=== PATIENT | male | born 1960 | race Asian ===

== ENCOUNTER 2016-12-07 19:08 | Inpatient (IN) | payer MEDICAID ==
[~2016-12-07] VITALS: Ht 170.2 cm; Wt 69.6 kg
[2016-12-07 20:44] VITALS: BP 121/65; RESP 22
[2016-12-07] MEDS: DICLOFENAC (EC) 75 MG TAB PO SCH (22:00)
[2016-12-07] MEDS ORDERED: TAMS0.4C2 PO (22:02)
[2016-12-07] MEDS ORDERED: SUCR1TAB56 PO (22:02)
[2016-12-07] MEDS ORDERED: DICL75TA2 PO (22:02)
[2016-12-07] MEDS ORDERED: GLYB5TAB3 PO (22:02)
[2016-12-08] MEDS ORDERED: GLUCAGON 1 MG INJ IM PRN
[2016-12-08] MEDS ORDERED: DEXTROSE 50% 50 ML SYRINGE IV PRN ×2
[2016-12-08] MEDS ORDERED: GLUCOSE GEL 15 GRAM TUBE BUCCAL PRN
[2016-12-08] MEDS ORDERED: GLUCOSE GEL 15 GRAM TUBE PO PRN ×2
[2016-12-08] MEDS: NICOTINE (21 MG/24 HR) PATCH TRANSDERM SCH ×3 (01:44→21:45)
[2016-12-08] MEDS: ACCU-CHEK XX SCH (01:49)
[2016-12-08] MEDS ORDERED: ACCU-CHEK XX SCH (02:00)
[2016-12-08 02:09] VITALS: BMI 18.2
[2016-12-08 03:11] VITALS: BP 164/86; RESP 19
[2016-12-08] MEDS ORDERED: INSULIN ASPART [NOVOLOG] 3 ML PEN SC SCH ×6 (07:50→17:55)
[2016-12-08 08:11] VITALS: BP 176/88; RESP 20
[2016-12-08] MEDS: DICLOFENAC (EC) 75 MG TAB PO SCH ×2 (08:39→21:49)
[2016-12-08] MEDS: SUCRALFATE 1 GM TAB PO SCH (08:39)
[2016-12-08] MEDS: hydrALAzine 20 MG INJ IV PRN (09:25)
[2016-12-08] MEDS ORDERED: HYDROCODONE/APAP (5/325) TAB PO PRN (09:30)
[2016-12-08] MEDS ORDERED: AMLODIPINE 5 MG TAB PO SCH (09:30)
[2016-12-08] MEDS ORDERED: morphine 2 MG INJ IV PRN (09:30)
[2016-12-08 10:37] VITALS: BP 127/65; PULSE 73
--- NOTE | 2016-12-08 12:00 | HP ---
Date/Time of Note Date/Time of Note DATE: 12/08/16 TIME: 11:51 Assessment/Plan VTE Prophylaxis VTE Prophylaxis Intervention: SCD's Lines/Catheters IV Catheter Type (from Nrsg): Saline Lock Assessment/Plan Chief Complaint/Hosp Course impression LBP with LE radic/weakness (right > left) . MRI Lspine for OSH showed L4-5 disc herniation with significant neuroforaminal narrowing Mild neck pain with balance difficulty Plan obtain mri cspine w/o contras to further workup neck pain, ataxia, and bilat UE numbness/tingling candidate for posterior TLIF L4-5 with ISF placement on Saturday if OR timie is available. medical clearance and management per Medical team. Problems: HPI/ROS Admit Date/Time Admit Date/Time Dec 07, 2016 at 20:20 Hx of Present Illness 56 y/o male initially admitted to [facility] for dehydration and low back pain with LE radic (right > left) , and worsening balance prior to his admission. CT/MRI Lspine revealed L4-5 disc herniation with with significant Neuroforaminal narrowing. pmh/psx: per hpi/chart meds: see med recon ros: per hpi/chart PMH/Family/Social Social History Smoking Status: Current every day smoker Exam/Review of Systems Vital Signs Vitals Vital Signs Date Time Temp Pulse Resp B/P Pulse Ox O2 Delivery O2 Flow Rate FiO2 12/08/16 10:37 73 127/65 12/08/16 08:11 98.3 20 100 Intake and Output 12/07/16 12/07/16 12/08/16 15:00 23:00 07:00 Intake Total 500 ml Balance 500 ml Exam Constitutional: alert, oriented Neurological: other (MS: [id number] CN: III-XII M: FC x 4 5/5 strength bilat UE , 5-/5 bilat LE with patchy distribution. ) Medications Medications Current Medications Tamsulosin HCl (Flomax) 0.4 mg HS PO ; Start 12/08/16 at 21:00 Sucralfate (Carafate) 1 gm DAILY PO Last administered on 12/08/16 08:39; Admin Dose 1 GM; Start 12/08/16 at 09:00 Diclofenac Sodium (Voltaren) 75 mg BID PO Last administered on 8/12/17at 08:39 ; Admin Dose 75 MG; Start 12/07/16 at 22:00 Diagnostic Test (Pha) (Accu-Chek) 1 ea 02 XX ; Start 12/08/16 at 02:00 Nicotine (Nicoderm 21 Mg/ 24hr) 1 patch DAILY TRANSDERM Last administered on 01:44; Admin Dose 1 PATCH; Start 12/08/16 at 00:00 Miscellaneous Information 1 ea NOTE XX ; Start 12/08/16 at 00:00 Glucose (Glutose) 15 gm Q15M PRN PO DECREASED GLUCOSE; Start 12/08/16 at 00:00 Glucose (Glutose) 22.5 gm Q15M PRN PO DECREASED GLUCOSE; Start 12/08/16 at 00: 00 Dextrose (D50w Syringe) 25 ml Q15M PRN IV DECREASED GLUCOSE; Start 12/08/16 at 00:00 Dextrose (D50w Syringe) 50 ml Q15M PRN IV DECREASED GLUCOSE; Start 12/08/16 at 00:00 Glucagon (Glucagen) 1 mg Q15M PRN IM DECREASED GLUCOSE; Start 12/08/16 at 00:00 Glucose (Glutose) 15 gm Q15M PRN BUCCAL DECREASED GLUCOSE; Start 12/08/16 at 00 :00 Acetaminophen (Tylenol Tab) 650 mg Q4H PRN PO PAIN AND OR ELEVATED TEMP; Start 12/08/16 at 09:30 Acetaminophen/ Hydrocodone Bitart ([place] (5/325)) 1 tab Q4H PRN PO PAIN; Start 12/08/16 at 09:30 Morphine Sulfate (morphine) 2 mg Q3H PRN IV BREAKTHROUGH PAIN; Start 12/08/16 at 09:30 Hydralazine HCl (Apresoline) 10 mg Q4H PRN IV ELEVATED BLOOD PRESSURE Last administered on 12/08/16 09:25; Admin Dose 10 MG; Start 12/08/16 at 09:30 Amlodipine Besylate (Norvasc) 5 mg DAILY PO Last administered on 12/08/16 09: 25; Admin Dose 5 MG; Start 12/08/16 at 09:30 ZHANE LANCASTER NP Dec 08, 2016 12:00
[2016-12-08] MEDS: INSULIN ASPART [NOVOLOG] 3 ML PEN SC SCH ×5 (12:42→21:40)
[2016-12-08 15:47] VITALS: BP 132/71; RESP 20
--- NOTE | 2016-12-08 17:14 | RADRPT ---
Echocardiogram Report Patient Name: AGUSTINA GAUTAM Gender: Male Date: 1960 Study Date: 08-Dec-2016 System Configuration Specialist: Bautista Tam [facility] Location: [id number] Ref. Physician: BOLIVAR SWEENEY Quality: Adequate Procedures: Transthoracic echocardiogram with complete 2D, M-Mode, and doppler examination. Indications: Pre-op. 2D/M Mode Doppler Measurement Value Normal Ranges Measurement Value Normal Ranges LVIDd 2D 4.3 3.5 - 5.6 cm AV Peak Gary 1.3 m/sec LVIDs 2D 3.0 2.1 - 4.1 cm AV Peak PG 7.0 mmHg FS 2D 31.9 % LVOT Peak Gary 1.1 m/sec LVPWd 2D 1.3 0.6 - 1.1 cm LVOT Peak PG 5.0 mmHg IVSd 2D 1.5 0.6 - 1.1 cm MV E Peak Gary 1.0 m/sec IVS/LVPW 2D 1.1 MV A Peak Gary 0.7 m/sec AoR Diam 2D 3.1 2.0 - 3.7 cm MV E/A 1.4 LA/Ao 2D 1 0 - 1 MV Decel Time 208 msec EDV 2D 81.2 cm3 MV E/A 1.4 ESV 2D 25.7 cm3 TR Peak Gary 2.5 m/sec LA Dimen 2D 3.8 2.3 - 4.0 cm TR Peak PG 25.0 mmHg RVSP 33.0 mmHg Findings Left Ventricle: Hyperdynamic left ventricular systolic function. Normal left ventricular cavity size. Sigmoid septum. Ejection fraction is visually estimated at 70 %. Abnormal Diastolic Function. Right Ventricle: Normal right ventricular size. Normal right ventricular systolic function. Left Atrium: The left atrium is normal in size. Right Atrium: The right atrium is normal in size. Mitral Valve: Mild mitral leaflet calcification. Mild mitral annular calcification. Trace mitral regurgitation. Aortic Valve: Normal appearance of the aortic valve. No significant aortic stenosis or insufficiency. Tricuspid Valve: Normal appearance of the tricuspid valve. Estimated peak PA systolic pressure 33 mmHg. There is trace tricuspid regurgitation. Pulmonic Valve: Pulmonic valve not well visualized. There is trace pulmonic regurgitation. Pericardium: Normal pericardium with no significant pericardial effusion. Aorta: Normal aortic root. IVC: Dilated IVC with respiratory collapse consistent with elevated right atrial pressure. Conclusions 1.Hyperdynamic left ventricular systolic function. Normal left ventricular cavity size. Sigmoid septum. Ejection fraction is visually estimated at 70 %. Abnormal Diastolic Function. 2.Normal right ventricular size. Normal right ventricular systolic function. 3.Mild mitral leaflet calcification. Mild mitral annular calcification. Trace mitral regurgitation. 4.Normal appearance of the aortic valve. No significant aortic stenosis or insufficiency. 5.Normal appearance of the tricuspid valve. Estimated peak PA systolic pressure 33 mmHg. There is trace tricuspid regurgitation. 6.Normal pericardium with no significant pericardial effusion. Electronically Signed By: Naren Sanchez 08-Dec-2016 17:13:31 -0700 Patient Name: AGUSTINA GAUTAM Study Date: 08-Dec-[id number]
[2016-12-08 21:19] VITALS: BP_SYST 128; BP_SYST 151; BP_DIAS 72; BP_DIAS 74; RESP 18
[2016-12-08] MEDS: INSULIN GLARGINE [LANtus] 3 ML PEN SC SCH (21:42)
[2016-12-08] MEDS: TAMSULOSIN (SR) 0.4 MG CAP PO SCH (21:45)
[2016-12-08] MEDS: ACETAMINOPHEN 325 MG TAB PO PRN (22:39)
[2016-12-09] MEDS ORDERED: ACCU-CHEK XX SCH ×5 (02:00)
[2016-12-09] MEDS: ACCU-CHEK XX SCH (02:05)
--- NOTE | 2016-12-09 02:06 | HP ---
DATE OF ADMISSION: 12/07/2016 CHIEF COMPLAINT: Bee sting. HISTORY OF PRESENT ILLNESS: The patient is a 56-year-old man with a history of diabetes, hypertension, and peripheral neuropathy. The patient also has low back pain radiating to lower extremity with weakness, right more than left. The patient was originally admitted at [facility]. MRI of the LS spine revealed L4-L5 disk herniation with significant neural foraminal narrowing. The patient was seen by Dr. Castaneda and subsequently was transferred to [facility] for surgical procedure. Patient denied any chest pain. Denied any shortness of breath. No history of fever or chills. No history of abdominal pain. No history of headache, dizziness syncope. Patient complained of mild neck discomfort and also difficulty in walking, which could either be due to neuropathy but will need to rule out C-spine causes. The patient will undergo MRI of the C- spine. The patient denied any leg edema. No history of urinary or bowel retention or incontinence. The rest of the system unremarkable. PAST SURGICAL HISTORY: None. ALLERGIES: NONE. SOCIAL HISTORY: The patient is a smoker. Socially drinks alcohol. PHYSICAL EXAMINATION: GENERAL APPEARANCE: . Patient is conscious, awake, alert. VITAL SIGNS: Upon admission, temperature 98.6, pulse 71, respirations 22, blood pressure 121/65. Subsequently blood pressure went up to 176/88, and was given dose of Norvasc, as well as IV hydralazine. The patient reported that he got blurry vision after taking Norvasc, therefore, the patient will be switched to Zestril. HEENT: Atraumatic, normocephalic. Pupils react to light. normal. Oropharynx clear. NECK: Supple. No thyromegaly. LUNGS: Fairly clear. CVS: S1, S2 normal. Regular rate and rhythm. No murmurs, gallops, rubs. ABDOMEN: Soft, nontender. Bowel sounds present. No organomegaly. EXTREMITIES: No leg edema. No clubbing, cyanosis. Pedal pulses palpable. SKIN: No acute rashes. NEUROLOGIC: The patient is awake, alert, fairly oriented, with minimal weakness in lower extremities. MEDICATIONS: List reviewed. LABS: Pending. IMPRESSION: 1. L4-5 disk herniation. 2. Diabetes mellitus. 3. Hypertension. 4. Rule out C-spine disease. PLAN: Patient admitted to a medical floor. Patient will be given 1800-calorie ADA. The patient will be started on prednisone as well as . The patient will also be started on Restoril. We will obtain MRI of the C-spine. We will also obtain hemoglobin A1c and lipid panel. The patient was seen by Dr. Castaneda and also was seen by Dr. Huang at [facility]. Further recommendations will depend on hospital course. Dictated By: Krzysztof Rubio MD /lenny/daly /Document#: [id number]
[2016-12-09 03:22] VITALS: BP 147/76; RESP 18
--- NOTE | 2016-12-09 05:39 | CONS ---
DATE OF ADMISSION: 12/07/2016 DATE OF CONSULTATION: 12/08/2016 HISTORY OF PRESENT ILLNESS: The patient is a 56-year-old male who was transferred from [facility] with low backache, gait difficulty, paresthesia. PAST MEDICAL HISTORY: Diabetes, hypertension, gait difficulty in which he has weakness of the bilateral lower extremities, associated with decreased balance. 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 I admitted him to [facility] where I found the patient has diabetic ketoacidosis with blood sugar of 506 upon admission. Followed by IV fluids and dehydration, insulin, as well as oral tablets. The patient also has hypertension, benign prostatic hypertrophy, and paresthesias. MEDICATION: 1. Ambien 5 mg once at night. 2. Ultram 50 mg q.4h as needed. 3. Glucotrol 5 mg twice a day. 4. Metformin 500 mg twice a day. 5. Maalox 30 mg as needed every six hours. 6. Neurontin 300 mg q.12h. 7. Protonix 40 mg once a day. 8. Tylenol 325 mg once a day. 9. Zofran 4 mg once a day. PHYSICAL EXAMINATION: NEUROLOGIC: Sensation: Hat Marker for glove and stocking area, temperature and coordination: Could not assess. HEART: Regular rate and rhythm. LUNGS: Equal breath sounds. ABDOMEN: Soft, flat, no tenderness. ASSESSMENT AND PLAN:: 1. The patient is a 56-year-old male with gait difficulty. 2. Lumbosacral radiculopathy with disc prolapse of 6 to 7 mm. The patient was transferred for more evaluation and treatment. 3. Paresthesia. Gave the patient Neurontin 300 mg three times a day. 4. Status post diabetic ketoacidosis. Follow up the patient with sliding scale insulin as well as Accu-Chek. 5. Hypertension in which the patient was started on lisinopril. 6. Acute dizzy spells with possibility of underyling cervical radiculopathy, in which MRI ordered by Dr. Castaneda. 7. Again, thank you Dr. Castaneda for asking me to see the patient with you. Dictated By: Kashif Huang MD /lenny/christine /Document#: [id number]
[2016-12-09 05:45] LABS: PARTIAL THROMBOPLASTIN TIME 30.9 Sec (25.0-35.0); PROTIME 13.2 Sec (12.2-14.2)
[2016-12-09 05:52] LABS: ALBUMIN 3.5 g/dl (3.3-4.9); ALBUMIN/GLOBULIN RATIO 1.45; BILIRUBIN,INDIRECT 0.5 mg/dl (0-1.1); BILIRUBIN,TOTAL 0.5 mg/dl (0.2-1.3); CREATININE 0.83 mg/dl (0.61-1.24); TOTAL PROTEIN 5.9 g/dl (6.1-8.1)
[2016-12-09] MEDS: ACETAMINOPHEN 325 MG TAB PO PRN (07:37)
[2016-12-09] MEDS: INSULIN ASPART [NOVOLOG] 3 ML PEN SC SCH ×7 (07:50→21:00)
[2016-12-09 08:10] VITALS: BP 164/78; RESP 20
[2016-12-09] MEDS: DICLOFENAC (EC) 75 MG TAB PO SCH ×2 (08:29→20:21)
[2016-12-09] MEDS: SUCRALFATE 1 GM TAB PO SCH (08:29)
[2016-12-09] MEDS: LISINOPRIL 10 MG TAB PO SCH (08:29)
--- NOTE | 2016-12-09 10:21 | PN ---
Date/Time of Note Date/Time of Note DATE: 12/09/16 TIME: 10:19 Assessment/Plan VTE Prophylaxis VTE Prophylaxis Intervention: SCD's Lines/Catheters IV Catheter Type (from Nrsg): Saline Lock Assessment/Plan Chief Complaint/Hosp Course impression LBP with LE radic/weakness (right > left) . MRI Lspine for OSH showed L4-5 disc herniation with significant neuroforaminal narrowing Mild neck pain with balance difficulty Plan obtain mri cspine w/o contrast to further workup neck pain, ataxia, and bilat UE numbness/tingling candidate for posterior TLIF L4-5 with ISF placement on Saturday if OR timie is available. Neurology following . MRI brain / Cervical spine - pending medical clearance and management per Medical team. Problems: Subjective 24 Hr Interval Summary Free Text/Dictation S: NAD Awaiting MRI brain /cervical spine which was ordered yesterday Exam/Review of Systems Vital Signs Vitals Vital Signs Date Time Temp Pulse Resp B/P Pulse Ox O2 Delivery O2 Flow Rate FiO2 12/09/16 08:10 98.0 78 20 164/78 99 Intake and Output 12/08/16 12/08/16 12/09/16 14:59 22:59 06:59 Intake Total 1900 ml 800 ml Output Total 900 ml Balance 1900 ml -100 ml Exam Neurological: other (MS: [id number] CN: PERRL M: FC x 4 , no new weakness noted. ) Results Result Diagram: 12/09/16 0450 Results 24 hrs Laboratory Tests Test 12/08/16 12:22 12/08/16 17:18 12/08/16 21:37 12/09/16 01:40 Bedside Glucose 199 140 182 209 Test 12/09/16 04:30 12/09/16 04:50 12/09/16 05:11 12/09/16 08:29 Prothrombin Time 13.2 Prothrombin Time Ratio 1.0 INR International Normalized Ratio 1.00 Activated Partial Thromboplast Time 30.9 Sodium Level 135 Potassium Level 4.0 Chloride Level 102 Carbon Dioxide Level 25 Anion Gap 12 Blood Urea Nitrogen 21 H Creatinine 0.83 Glucose Level 145 Calcium Level 9.0 Total Bilirubin 0.5 Direct Bilirubin 0.00 Indirect Bilirubin 0.5 Aspartate Amino Transf (AST/SGOT) 24 Alanine Aminotransferase (ALT/SGPT) 33 Alkaline Phosphatase 67 Total Protein 5.9 L Albumin 3.5 Globulin 2.40 Albumin/Globulin Ratio 1.45 Triglycerides Level 88 Cholesterol Level 147 LDL Cholesterol, Calculated 93 HDL Cholesterol 36 Cholesterol/HDL Ratio 4.0 Hemoglobin A1c 13.3 H Bedside Glucose 130 Medications Medications Current Medications Tamsulosin HCl (Flomax) 0.4 mg HS PO Last administered on 12/08/16 21:45; Admin Dose 0.4 MG; Start 12/08/16 at 21:00 Sucralfate (Carafate) 1 gm DAILY PO Last administered on 12/09/16 08:29; Admin Dose 1 GM; Start 12/08/16 at 09:00 Diclofenac Sodium (Voltaren) 75 mg BID PO Last administered on 12/09/16 08:29 ; Admin Dose 75 MG; Start 12/07/16 at 22:00 Diagnostic Test (Pha) (Accu-Chek) 1 ea 02 XX Last administered on 12/09/16 02: 05; Admin Dose 1 EA; Start 12/08/16 at 02:00 Nicotine (Nicoderm 21 Mg/ 24hr) 1 patch DAILY TRANSDERM Last administered on 21:45; Admin Dose 1 PATCH; Start 12/08/16 at 00:00 Miscellaneous Information 1 ea NOTE XX ; Start 12/08/16 at 00:00 Glucose (Glutose) 15 gm Q15M PRN PO DECREASED GLUCOSE; Start 12/08/16 at 00:00 Glucose (Glutose) 22.5 gm Q15M PRN PO DECREASED GLUCOSE; Start 12/08/16 at 00: 00 Dextrose (D50w Syringe) 25 ml Q15M PRN IV DECREASED GLUCOSE; Start 12/08/16 at 00:00 Dextrose (D50w Syringe) 50 ml Q15M PRN IV DECREASED GLUCOSE; Start 12/08/16 at 00:00 Glucagon (Glucagen) 1 mg Q15M PRN IM DECREASED GLUCOSE; Start 12/08/16 at 00:00 Glucose (Glutose) 15 gm Q15M PRN BUCCAL DECREASED GLUCOSE; Start 12/08/16 at 00 :00 Acetaminophen (Tylenol Tab) 650 mg Q4H PRN PO PAIN AND OR ELEVATED TEMP Last administered on 12/09/16 07:37; Admin Dose 650 MG; Start 12/08/16 at 09:30 Acetaminophen/ Hydrocodone Bitart ([place] (5/325)) 1 tab Q4H PRN PO PAIN; Start 12/08/16 at 09:30 Morphine Sulfate (morphine) 2 mg Q3H PRN IV BREAKTHROUGH PAIN; Start 12/08/16 at 09:30 Hydralazine HCl (Apresoline) 10 mg Q4H PRN IV ELEVATED BLOOD PRESSURE Last administered on 12/08/16 09:25; Admin Dose 10 MG; Start 12/08/16 at 09:30 Insulin Glargine (Lantus) 10 unit DAILY@20 SC Last administered on 12/08/16 21 :42; Admin Dose 10 UNIT; Start 12/08/16 at 20:00 Lisinopril (Zestril) 10 mg DAILY PO Last administered on 12/09/16 08:29; Admin Dose 10 MG; Start 12/09/16 at 09:00 ZHANE LANCASTER NP Dec 09, 2016 10:21
[2016-12-09] MEDS: hydrALAzine 20 MG INJ IV PRN (14:10)
[2016-12-09 14:55] VITALS: BP 165/77; RESP 22
--- NOTE | 2016-12-09 15:48 | RADRPT ---
PROCEDURE: MR Cervical Spine noncontrast. CLINICAL INDICATION: Neuropathy. Ataxia. TECHNIQUE: Multiplanar multisequence noncontrast MRI of the cervical spine was performed. COMPARISON: There are no similar studies submitted for comparison. FINDINGS: There is a normal cervical lordosis. The vertebral body heights are maintained. There is normal alignment. There is no destructive osseous lesion. There is no abnormal bone marrow edema. There is disk desiccation from C2-C3 to C6-C7. The spinal cord is normal in caliber. The spinal cord is normal in signal. C2-C3 : There is a 1 mm circumferential disk osteophyte complex without spinal canal or bilateral fo raminal stenosis. C3-C4 : There is a 1 mm broad-based disk osteophyte complex without spinal canal stenosis. There is moderate bilateral facet arthropathy and bilateral uncovertebral hypertrophy causing moderate to se eddi left with mild to moderate right foraminal stenosis. This affects the exiting left C4 nerve ro ot. C4-C5 : There is a 1 mm circumferential disk osteophyte complex with 1 mm central disk/osteophyte pr otrusion without spinal canal stenosis. There is moderate bilateral facet arthropathy and bilateral uncovertebral hypertrophy without bilateral foraminal stenosis. C5-C6 : There is mild disk space narrowing. There is a 2 mm circumferential disk osteophyte complex without spinal canal stenosis. There is severe left and mild right facet arthropathy and bilateral uncovertebral hypertrophy causing severe left without right foraminal stenosis. This affects the ex iting left C6 nerve root. C6-C7 : There is a 1 mm broad-based disk osteophyte complex without spinal canal stenosis. There is moderate bilateral facet arthropathy and bilateral uncovertebral hypertrophy with mild right withou t left foraminal stenosis. There are bilateral nerve root sleeve cysts. C7-T1 : There is a 1 mm broad-based disk bulge without spinal canal stenosis. There is mild bilater al facet arthropathy without bilateral foraminal stenosis. There are bilateral nerve root sleeve cy sts. The paravertebral musculature are within normal limits. IMPRESSION: 1. Multilevel degenerative changes most pronounced at C5-C6 where there is a circumferential disk o steophyte complex with severe left foraminal stenosis. This affects the exiting left C6 nerve root. 2. No abnormal spinal cord signal. 3. No abnormal bone marrow edema. Further findings as detailed above. RPTAT: HVF .Bar Francis MD, MD Date Time Electronically viewed and signed by .Bar Francis MD, MD on 12/09/2016 15:47 .F/
--- NOTE | 2016-12-09 15:49 | RADRPT ---
PROCEDURE: MRI Brain without contrast. CLINICAL INDICATION: Ataxia, visual disturbance. TECHNIQUE: An MRI of the brain was performed utilizing the following sequences: Sagittal and axial T1 weighted, axial T2 weighted, axial diffusion weighted with ADC mapping, coronal GRE, and axial F LAIR. COMPARISON: None. FINDINGS: No diffusion weighted abnormalities are seen to suggest the presence of acute ischemia or recent inf arct. No hypointense signal abnormalities are seen on the GRE images to suggest the presence of blo od degradation products. There is no evidence of intracranial hemorrhage, mass effect, or midline s hift. No extra-axial fluid collections are seen. The ventricles and sulci are mildly enlarged indica tive of volume loss. There are minimal foci of T2 FLAIR hyperintensity in the white matter as well as ceci, which are non specific in etiology but likely reflect chronic small vessel ischemic changes. In addition there i s a nonspecific T2 and FLAIR hyperintensity in the central ceci which is disproportionate to cerebra l white matter. Differential consideration includes osmotic demyelination, ischemia, or less likely neoplasm. No abnormal intracranial vascular flow void is noted. The visualized paranasal sinuses demonstrate m ild scattered mucosal thickening. IMPRESSION: 1. No acute intracranial hemorrhage or infarction. 2. Nonspecific T2 and FLAIR hyperintensity in the central ceci which is disproportionate to cerebra l white matter. Differential consideration includes osmotic demyelination, ischemia, or less likely neoplasm. If clinical concern persists MRI with contrast can be obtained. 3. Minimal chronic small vessel ischemic changes. 4. Mild generalized cerebral volume loss. A call report was made and above findings were discussed and acknowledged by patient's nurse SENA Vyas on 12/09/2016 2:[address] Castaneda and Dr Huang on 12/09/2016 3:42 PM . RPTAT: QQ .Taras Veronica MD, MD Date Time Electronically viewed and signed by .Taras Veronica MD, MD on 12/09/2016 15:49 .N/
[2016-12-09 16:39] VITALS: BP 135/63; PULSE 77
[2016-12-09 19:50] VITALS: BP 134/64; RESP 18
[2016-12-09] MEDS: INSULIN GLARGINE [LANtus] 3 ML PEN SC SCH (20:21)
[2016-12-09] MEDS: TAMSULOSIN (SR) 0.4 MG CAP PO SCH (20:22)
[2016-12-09] MEDS: NICOTINE (21 MG/24 HR) PATCH TRANSDERM SCH (20:23)
[2016-12-10 01:48] VITALS: BP 163/79; RESP 18
[2016-12-10] MEDS: ACCU-CHEK XX SCH (02:00)
--- NOTE | 2016-12-10 04:32 | PN ---
DATE: 12/09/2016 SUBJECTIVE DATA: The patient is a 56-year-old male with a past medical history of hypertension, diabetes, low backache, gait difficulty for which the patient was admitted for more evaluation and treatment. MEDICATIONS: The patient has multiple medications in the form of metformin, Glucotrol, Ambien, Ultram, Tylenol, Zofran. OBJECTIVE DATA: The patient is awake, alert and oriented to time, place and person. Normal . Heart has regular rate and rhythm. Lungs have equal breath sounds. Abdomen soft, flat, nontender, nondistended. Hip: Decreased right hip flexion. low backaches. , temperature, coordination. [id number] testing intact. ASSESSMENT AND PLAN: 1. The patient is a 56-year-old with lumbosacral radiculopathy at L4-L5 with neural foramina narrowing for which the patient required neurosurgery evaluation and possible surgery. Follow up the patient with surgical interference with Dr. Fernanda Castaneda who ordered for him a MRI and discussed surgery. 2. Underlying diabetes. The patient is followed by sliding scale insulin treatment, Glucotrol and metformin. 3. Underlying gastritis. The patient is on Pepcid, Protonix 40 mg as needed. 4. History of hypertension. The patient is on hydralazine 10 mg q.4h as needed. Dictated By: Kashif Huang MD /lenny/shyam /Document#: [id number]
[2016-12-10 05:47] LABS: BASOPHILS % 0.4 % (0.0-2.0); EOSINOPHILS # 0.1 10^3/ul (0.0-0.5); EOSINOPHILS % 2.4 % (0.0-7.0); HEMATOCRIT 36.4 % (42.0-52.0); HEMOGLOBIN 11.9 g/dl (14.0-18.0); LYMPHOCYTES # 2.3 10^3/ul (0.8-2.9); LYMPHOCYTES % 49.5 % (15.0-51.0); MEAN CORPUSCULAR HEMOGLOBIN 29.2 pg (29.0-33.0); MEAN CORPUSCULAR HGB CONC 32.7 g/dl (32.0-37.0); MEAN CORPUSCULAR VOLUME 89.2 fl (82.0-101.0); MEAN PLATELET VOLUME 11.3 fl (7.4-10.4); MONOCYTE # 0.5 10^3/ul (0.3-0.9); MONOCYTES % 10.9 % (0.0-11.0); NEUTROPHIL # 1.7 10^3/ul (1.6-7.5); NEUTROPHILS % 36.6 % (39.0-77.0); PLATELET COUNT 168 10^3/UL (140-415); RED BLOOD COUNT 4.08 10^6/ul (4.70-6.10); RED CELL DISTRIBUTION WIDTH 13.1 % (11.5-14.5); WHITE BLOOD COUNT 4.7 10^3/ul (4.8-10.8)
[2016-12-10 05:59] LABS: CALCIUM 9.2 mg/dl (8.4-10.2); CREATININE 0.97 mg/dl (0.61-1.24); POTASSIUM 4.2 mmol/L (3.5-5.1)
[2016-12-10 08:18] VITALS: BP 119/63; RESP 20
[2016-12-10] MEDS: DICLOFENAC (EC) 75 MG TAB PO SCH ×2 (08:41→23:11)
[2016-12-10] MEDS: SUCRALFATE 1 GM TAB PO SCH (08:41)
[2016-12-10] MEDS: LISINOPRIL 10 MG TAB PO SCH (08:41)
[2016-12-10] MEDS: INSULIN ASPART [NOVOLOG] 3 ML PEN SC SCH ×7 (08:50→21:06)
--- NOTE | 2016-12-10 15:45 | PN ---
Date/Time of Note Date/Time of Note DATE: 12/10/16 TIME: 15:40 Assessment/Plan VTE Prophylaxis VTE Prophylaxis Intervention: SCD's Lines/Catheters IV Catheter Type (from Nrsg): Peripheral IV Assessment/Plan Assessment/Plan -L4-5 disk herniation with significant neuroforaminal narrowing with radiculopathy and weakness plan for surgical procedure by Dr. Castaneda tomorrow. Will obtain chest x-ray BMP CBC and coags. -Poorly controlled diabetes mellitus with hemoglobin A1c 13.3, continue Lantus and NovoLog, diabetic education. -Hypertension. Continue lisinopril and hydralazine. -Tobacco dependence, continue nicotine patch, tobacco cessation is strongly advised. Further recommendations based on clinical course. Plan of care discussed with Dr. Rubio. Exam/Review of Systems Vital Signs Vitals Vital Signs Date Time Temp Pulse Resp B/P Pulse Ox O2 Delivery O2 Flow Rate FiO2 12/10/16 08:18 98.4 71 20 119/63 98 Intake and Output 12/09/16 12/09/16 12/10/16 15:00 23:00 07:00 Intake Total 890 ml 850 ml Output Total 1200 ml Balance 890 ml -350 ml Exam Constitutional: alert, oriented Head: atraumatic, normocephalic Neck: supple Cardiovascular: nl pulses Gastrointestinal: soft Extremities: normal pulses Results Result Diagram: 12/10/16 0438 12/10/16 0438 Results 24 hrs Laboratory Tests Test 12/09/16 17:34 12/09/16 20:19 12/10/16 04:38 12/10/16 08:46 Bedside Glucose 269 H 137 189 White Blood Count 4.7 L Red Blood Count 4.08 L Hemoglobin 11.9 L Hematocrit 36.4 L Mean Corpuscular Volume 89.2 Mean Corpuscular Hemoglobin 29.2 Mean Corpuscular Hemoglobin Concent 32.7 Red Cell Distribution Width 13.1 Platelet Count 168 Mean Platelet Volume 11.3 H Neutrophils % 36.6 L Lymphocytes % 49.5 Monocytes % 10.9 Eosinophils % 2.4 Basophils % 0.4 Nucleated Red Blood Cells % 0.0 Neutrophils # 1.7 Lymphocytes # 2.3 Monocytes # 0.5 Eosinophils # 0.1 Basophils # 0.0 Nucleated Red Blood Cells # 0.0 Sodium Level 138 Potassium Level 4.2 Chloride Level 102 Carbon Dioxide Level 28 Anion Gap 12 Blood Urea Nitrogen 21 H Creatinine 0.97 Glucose Level 150 Calcium Level 9.2 Test 12/10/16 12:45 Bedside Glucose 159 Medications Medications Current Medications Tamsulosin HCl (Flomax) 0.4 mg HS PO Last administered on 12/09/16 20:22; Admin Dose 0.4 MG; Start 12/08/16 at 21:00 Sucralfate (Carafate) 1 gm DAILY PO Last administered on 12/10/16 08:41; Admin Dose 1 GM; Start 12/08/16 at 09:00 Diclofenac Sodium (Voltaren) 75 mg BID PO Last administered on 12/10/16 08:41 ; Admin Dose 75 MG; Start 12/07/16 at 22:00 Diagnostic Test (Pha) (Accu-Chek) 1 ea 02 XX Last administered on 12/09/16 02: 05; Admin Dose 1 EA; Start 12/08/16 at 02:00 Nicotine (Nicoderm 21 Mg/ 24hr) 1 patch DAILY TRANSDERM Last administered on 20:23; Admin Dose 1 PATCH; Start 12/08/16 at 00:00 Miscellaneous Information 1 ea NOTE XX ; Start 12/08/16 at 00:00 Glucose (Glutose) 15 gm Q15M PRN PO DECREASED GLUCOSE; Start 12/08/16 at 00:00 Glucose (Glutose) 22.5 gm Q15M PRN PO DECREASED GLUCOSE; Start 12/08/16 at 00: 00 Dextrose (D50w Syringe) 25 ml Q15M PRN IV DECREASED GLUCOSE; Start 12/08/16 at 00:00 Dextrose (D50w Syringe) 50 ml Q15M PRN IV DECREASED GLUCOSE; Start 12/08/16 at 00:00 Glucagon (Glucagen) 1 mg Q15M PRN IM DECREASED GLUCOSE; Start 12/08/16 at 00:00 Glucose (Glutose) 15 gm Q15M PRN BUCCAL DECREASED GLUCOSE; Start 12/08/16 at 00 :00 Acetaminophen (Tylenol Tab) 650 mg Q4H PRN PO PAIN AND OR ELEVATED TEMP Last administered on 12/09/16 07:37; Admin Dose 650 MG; Start 12/08/16 at 09:30 Acetaminophen/ Hydrocodone Bitart ([place] (5/325)) 1 tab Q4H PRN PO PAIN; Start 12/08/16 at 09:30 Morphine Sulfate (morphine) 2 mg Q3H PRN IV BREAKTHROUGH PAIN; Start 12/08/16 at 09:30 Hydralazine HCl (Apresoline) 10 mg Q4H PRN IV ELEVATED BLOOD PRESSURE Last administered on 12/09/16 14:10; Admin Dose 10 MG; Start 12/08/16 at 09:30 Insulin Glargine (Lantus) 10 unit DAILY@20 SC Last administered on 12/09/16 20 :21; Admin Dose 10 UNIT; Start 12/08/16 at 20:00 Lisinopril (Zestril) 10 mg DAILY PO Last administered on 12/10/16 08:41; Admin Dose 10 MG; Start 12/09/16 at 09:00 HUAN CAICEDO Dec 10, 2016 15:45
[2016-12-10] MEDS: NICOTINE (21 MG/24 HR) PATCH TRANSDERM SCH (17:10)
[2016-12-10] MEDS ORDERED: glipiZIDE 5 MG TAB PO ONE (17:30)
[2016-12-10] MEDS: metFORMIN 500 MG TAB PO SCH (18:20)
[2016-12-10 20:21] VITALS: BP 147/73; RESP 16
[2016-12-10] MEDS: INSULIN GLARGINE [LANtus] 3 ML PEN SC SCH (21:05)
[2016-12-10] MEDS: TAMSULOSIN (SR) 0.4 MG CAP PO SCH (23:11)
[2016-12-11] VITALS (23 sets, daily range): BP systolic 107–175; BP diastolic 55–96; PULSE 78–83; RESP 12–20
--- NOTE | 2016-12-11 00:13 | RADRPT ---
PROCEDURE: XR Chest. CLINICAL INDICATION: Preop TECHNIQUE: Single AP portable chest. COMPARISON: No prior Chest x-ray FINDINGS: The cardiomediastinal silhouette is within normal limits of size. Atherosclerotic calcification of t he aorta. The lungs are clear without pleural effusion or focal consolidation. No pneumothorax. The osseous structures and soft tissues are unremarkable. IMPRESSION: 1. No evidence for active cardiopulmonary disease. RPTAT:AAJJ Reyes H[place] Physician Date Time Electronically viewed and signed by Reyes Hinton Physician on 12/11/2016 00:13 ROCKY/
[2016-12-11] MEDS: ACCU-CHEK XX SCH (02:07)
[2016-12-11 05:21] LABS: BASOPHILS % 0.4 % (0.0-2.0); EOSINOPHILS # 0.1 10^3/ul (0.0-0.5); EOSINOPHILS % 2.7 % (0.0-7.0); HEMATOCRIT 32.2 % (42.0-52.0); HEMOGLOBIN 10.7 g/dl (14.0-18.0); LYMPHOCYTES # 2.6 10^3/ul (0.8-2.9); LYMPHOCYTES % 52.9 % (15.0-51.0); MEAN CORPUSCULAR HEMOGLOBIN 29.3 pg (29.0-33.0); MEAN CORPUSCULAR HGB CONC 33.2 g/dl (32.0-37.0); MEAN CORPUSCULAR VOLUME 88.2 fl (82.0-101.0); MONOCYTE # 0.5 10^3/ul (0.3-0.9); NEUTROPHILS % 32.8 % (39.0-77.0); PLATELET COUNT 148 10^3/UL (140-415); RED BLOOD COUNT 3.65 10^6/ul (4.70-6.10); WHITE BLOOD COUNT 4.8 10^3/ul (4.8-10.8)
[2016-12-11 05:44] LABS: CALCIUM 8.7 mg/dl (8.4-10.2); CREATININE 0.91 mg/dl (0.61-1.24)
[2016-12-11 05:45] LABS: INR 0.99; PROTIME 13.1 Sec (12.2-14.2)
[2016-12-11 05:50] LABS: PARTIAL THROMBOPLASTIN TIME 30.3 Sec (25.0-35.0)
[2016-12-11] MEDS ORDERED: ROCURONIUM 50 MG INJ ONE ×2 (07:00→17:50)
[2016-12-11] MEDS ORDERED: PROPOFOL 200 MG INJ ONE (07:00)
--- NOTE | 2016-12-11 08:20 | CONS ---
DATE OF ADMISSION: 12/07/2016 DATE OF CONSULTATION: 12/10/2016 HISTORY OF PRESENT ILLNESS: Patient is a 56-year-old with underlying diabetes, hypertension, low back ache, radiculopathy, decreased gait. PHYSICAL EXAMINATION: GENERAL: Patient is alert, awake, oriented. Following simple commands. HEART: Regular rate and rhythm. LUNGS: Equal breath sounds. ABDOMEN: Soft, nondistended, no tenderness. Right hip flexion limited by low back ache. LABORATORY DATA: Patient's blood sugar today between 140-190. ASSESSMENT AND PLAN: 1. We have already stopped his metformin, as well as glipizide, and follow up the patient with sliding scale insulin and AccuCheks. The patient is scheduled to have the surgery tomorrow at 5 p.m., in which he will be n.p.o. after breakfast in the morning. 2. Status post diabetes for observation with sliding scale insulin and AccuCheks. 3. Admit the patient. 4. We will start the patient on aspirin for stroke prophylaxis with abnormal MRI; however, we will hold the aspirin until he has the surgery. Dictated By: Kashif Huang MD /lenny/daly /Document#: [id number]
[2016-12-11] MEDS: SUCRALFATE 1 GM TAB PO SCH (08:31)
[2016-12-11] MEDS: metFORMIN 500 MG TAB PO SCH ×2 (08:31→17:33)
[2016-12-11] MEDS: DICLOFENAC (EC) 75 MG TAB PO SCH ×2 (08:31→21:00)
[2016-12-11] MEDS: LISINOPRIL 10 MG TAB PO SCH (08:32)
[2016-12-11] MEDS: INSULIN ASPART [NOVOLOG] 3 ML PEN SC SCH ×5 (09:11→17:25)
[2016-12-11] MEDS ORDERED: SOD CHLORIDE 0.9% 1,000 ML IV SCH (11:00)
--- NOTE | 2016-12-11 13:39 | PN ---
Date/Time of Note Date/Time of Note DATE: 12/11/16 TIME: 13:37 Assessment/Plan VTE Prophylaxis VTE Prophylaxis Intervention: SCD's Lines/Catheters [facility] [place] Urinary Cath still in place: No Assessment/Plan Chief Complaint/Hosp Course Patient is currently n.p.o. for surgery in the afternoon, no acute events. Will start IV fluids with dextrose while patient is n.p.o. change Accu-Chek to every 4 hours. Assessment/Plan -L4-5 disk herniation with significant neuroforaminal narrowing with radiculopathy and weakness, plan for surgical procedure by Dr. Castaneda. -Poorly controlled diabetes mellitus with hemoglobin A1c 13.3, continue Lantus and NovoLog, diabetic education. -Hypertension. Continue lisinopril and hydralazine. -Tobacco dependence, continue nicotine patch, tobacco cessation is strongly advised. Further recommendations based on clinical course. Plan of care discussed with Dr. Rubio. Problems: Exam/Review of Systems Vital Signs Vitals Vital Signs Date Time Temp Pulse Resp B/P Pulse Ox O2 Delivery O2 Flow Rate FiO2 12/11/16 08:21 98.0 72 18 110/55 98 Intake and Output 12/10/16 12/10/16 12/11/16 15:00 23:00 07:00 Intake Total 1240 ml 1100 ml Balance 1240 ml 1100 ml Results Result Diagram: 12/11/16 0440 12/11/16 0440 Results 24 hrs Laboratory Tests Test 12/10/16 17:41 12/10/16 20:58 12/11/16 02:01 12/11/16 04:40 Bedside Glucose 195 187 181 White Blood Count 4.8 Red Blood Count 3.65 L Hemoglobin 10.7 L Hematocrit 32.2 L Mean Corpuscular Volume 88.2 Mean Corpuscular Hemoglobin 29.3 Mean Corpuscular Hemoglobin Concent 33.2 Red Cell Distribution Width 13.0 Platelet Count 148 Mean Platelet Volume 11.0 H Neutrophils % 32.8 L Lymphocytes % 52.9 H Monocytes % 11.0 Eosinophils % 2.7 Basophils % 0.4 Nucleated Red Blood Cells % 0.0 Neutrophils # (Manual) 1.6 L Lymphocytes # 2.6 Monocytes # 0.5 Eosinophils # 0.1 Basophils # 0.0 Nucleated Red Blood Cells # 0.0 Prothrombin Time 13.1 Prothrombin Time Ratio 1.0 INR International Normalized Ratio 0.99 Activated Partial Thromboplast Time 30.3 Thrombin Time 14.0 Sodium Level 134 L Potassium Level 4.0 Chloride Level 102 Carbon Dioxide Level 25 Anion Gap 11 Blood Urea Nitrogen 23 H Creatinine 0.91 Glucose Level 215 Calcium Level 8.7 Test 12/11/16 08:46 12/11/16 12:36 Bedside Glucose 210 112 Medications Medications Current Medications Tamsulosin HCl (Flomax) 0.4 mg HS PO Last administered on 12/10/16 23:11; Admin Dose 0.4 MG; Start 12/08/16 at 21:00 Sucralfate (Carafate) 1 gm DAILY PO Last administered on 12/11/16 08:31; Admin Dose 1 GM; Start 12/08/16 at 09:00 Diclofenac Sodium (Voltaren) 75 mg BID PO Last administered on 12/11/16 08:31 ; Admin Dose 75 MG; Start 12/07/16 at 22:00 Diagnostic Test (Pha) (Accu-Chek) 1 ea 02 XX Last administered on 12/11/16 02: 07; Admin Dose 1 EA; Start 12/08/16 at 02:00 Nicotine (Nicoderm 21 Mg/ 24hr) 1 patch DAILY TRANSDERM Last administered on 17:10; Admin Dose 1 PATCH; Start 12/08/16 at 00:00 Miscellaneous Information 1 ea NOTE XX ; Start 12/08/16 at 00:00 Glucose (Glutose) 15 gm Q15M PRN PO DECREASED GLUCOSE; Start 12/08/16 at 00:00 Glucose (Glutose) 22.5 gm Q15M PRN PO DECREASED GLUCOSE; Start 12/08/16 at 00: 00 Dextrose (D50w Syringe) 25 ml Q15M PRN IV DECREASED GLUCOSE; Start 12/08/16 at 00:00 Dextrose (D50w Syringe) 50 ml Q15M PRN IV DECREASED GLUCOSE; Start 12/08/16 at 00:00 Glucagon (Glucagen) 1 mg Q15M PRN IM DECREASED GLUCOSE; Start 12/08/16 at 00:00 Glucose (Glutose) 15 gm Q15M PRN BUCCAL DECREASED GLUCOSE; Start 12/08/16 at 00 :00 Acetaminophen (Tylenol Tab) 650 mg Q4H PRN PO PAIN AND OR ELEVATED TEMP Last administered on 12/09/16 07:37; Admin Dose 650 MG; Start 12/08/16 at 09:30 Acetaminophen/ Hydrocodone Bitart ([place] (5/325)) 1 tab Q4H PRN PO PAIN; Start 12/08/16 at 09:30 Morphine Sulfate (morphine) 2 mg Q3H PRN IV BREAKTHROUGH PAIN; Start 12/08/16 at 09:30 Hydralazine HCl (Apresoline) 10 mg Q4H PRN IV ELEVATED BLOOD PRESSURE Last administered on 12/09/16 14:10; Admin Dose 10 MG; Start 12/08/16 at 09:30 Insulin Glargine (Lantus) 10 unit DAILY@20 SC Last administered on 12/10/16 21 :05; Admin Dose 10 UNIT; Start 12/08/16 at 20:00 Lisinopril 10 mg 10 mg DAILY PO Last administered on 12/11/16 08:32; Admin Dose 10 MG; Start 12/09/16 at 09:00 Sodium Chloride (NS) 1,000 ml @ 75 mls/hr [id number] IV ; Start 12/11/16 at 11:00 HUAN CAICEDO Dec 11, 2016 13:39
[2016-12-11] MEDS: DEXTROSE 5%-0.9% NACL 1,000 ML IV SCH (14:12)
[2016-12-11] MEDS: Insulin NOVOLOG SS MILD Algorithm (NPO/TPN/ENTERAL FEEDS) SC SCH ×2 (16:55→23:48)
[2016-12-11] MEDS ORDERED: INSULIN ASPART [NOVOLOG] 3 ML PEN SC SCH (17:00)
[2016-12-11] MEDS ORDERED: GELATIN SIZE 100 SPONGE ONE (17:23)
[2016-12-11] MEDS ORDERED: THROMBIN 5000 UNIT VIAL ONE (17:23)
[2016-12-11] MEDS ORDERED: BUPIVACAINE 0.5% (SDV) 30 ML INJ ONE (17:23)
[2016-12-11] MEDS ORDERED: POLYMYXIN/BACITRACIN 1L IRRIG ONE (17:24)
[2016-12-11] MEDS ORDERED: PROPOFOL 20 ML ONE (17:50)
[2016-12-11] MEDS ORDERED: CEFAZOLIN 1 GM INJ ONE (17:50)
[2016-12-11] MEDS ORDERED: DEXAMETHASONE 4 MG/ML 1 ML INJ ONE (17:50)
[2016-12-11] MEDS ORDERED: NEOSTIGMINE 3 MG/3 ML SYRINGE ONE (17:50)
[2016-12-11] MEDS ORDERED: MIDAZOLAM 1 MG/ML 2 ML INJ ONE ×2 (17:50→18:40)
[2016-12-11] MEDS ORDERED: GLYCOPYRROLATE 0.4 MG INJ ONE (17:50)
[2016-12-11] MEDS ORDERED: FENTAnyl 50 MCG/ML VIAL ONE (17:50)
[2016-12-11] MEDS ORDERED: ONDANSETRON 4 MG INJ ONE (17:50)
[2016-12-11] MEDS: DOCUSATE SODIUM 100 MG CAP PO SCH (18:00)
[2016-12-11] MEDS ORDERED: NACL 0.9% 3 ML SYG IV SCH (18:00)
[2016-12-11] MEDS: CEFAZOLIN 1 GM/50 ML (PMX) 50 ML IVPB SCH ×2 (18:00→23:58)
[2016-12-11] MEDS ORDERED: NALOXONE (0.4 MG/ML) INJ IV PRN (18:00)
[2016-12-11] MEDS ORDERED: MEPERIDINE 25 MG INJ IV PRN (20:00)
[2016-12-11] MEDS ORDERED: DIPHENHYDRAMINE 50 MG INJ IV PRN (20:00)
[2016-12-11] MEDS ORDERED: ALBUTEROL 0.083% (NEB) 2.5 MG/3 ML AMP HHN PRN (20:00)
[2016-12-11] MEDS ORDERED: EPHEDrine SULFATE 50 MG/5 ML SYG IV PRN (20:00)
[2016-12-11] MEDS ORDERED: FENTAnyl 50 MCG/ML VIAL IV PRN ×3 (20:00)
[2016-12-11] MEDS ORDERED: ONDANSETRON 4 MG INJ IV PRN (20:00)
[2016-12-11] MEDS ORDERED: OXYCODONE/ACETAMINOPHEN (5/325) TAB PO PRN ×2 (20:00)
[2016-12-11] MEDS ORDERED: MIDAZOLAM 1 MG/ML 2 ML INJ IV PRN (20:00)
[2016-12-11] MEDS ORDERED: HYDROmorphONE (0.2 MG/ML) 10ML SYG IV PRN ×3 (20:00)
[2016-12-11] MEDS ORDERED: IPRATROPIUM (NEB) 0.5 MG/2.5 ML AMP HHN PRN (20:00)
[2016-12-11] MEDS ORDERED: TRIMETHOBENZAMIDE 100 MG/ML VIAL IM PRN (20:00)
[2016-12-11] MEDS ORDERED: LABETALOL HCL 20MG INJ IV PRN (20:00)
[2016-12-11] MEDS ORDERED: hydrALAzine 20 MG INJ IV PRN (20:00)
[2016-12-11] MEDS ORDERED: LABETALOL HCL 20MG INJ ONE (20:03)
[2016-12-11] MEDS ORDERED: ROPIVACAINE 0.5 % 30 ML VIAL ONE (20:05)
[2016-12-11] MEDS: TAMSULOSIN (SR) 0.4 MG CAP PO SCH (21:00)
[2016-12-11] MEDS ORDERED: SUGAMMADEX SODIUM 200 MG/2 ML VIAL IV ONE (21:05)
[2016-12-11] MEDS ORDERED: POLYMYXIN/BACITRACIN 1L IRRIG IRR ONE (22:02)
[2016-12-11] MEDS: INSULIN GLARGINE [LANtus] 3 ML PEN SC SCH (23:47)
[2016-12-12] VITALS (7 sets, daily range): BP systolic 108–146; BP diastolic 61–69; PULSE 83–85; RESP 18–20
[2016-12-12] MEDS: Insulin NOVOLOG SS MILD Algorithm (NPO/TPN/ENTERAL FEEDS) SC SCH ×6 (01:00→20:45)
[2016-12-12 01:37] LABS: ADD UMIC NO; UR ASCORBIC ACID NEGATIVE (NEGATIVE); UR BILIRUBIN (Dip) NEGATIVE (NEGATIVE); UR BLOOD (Dip) NEGATIVE (NEGATIVE); UR CLARITY CLEAR (CLEAR); UR COLOR STRAW (YELLOW); UR GLUCOSE (Dip) NEGATIVE (NEGATIVE); UR KETONES (Dip) NEGATIVE (NEGATIVE); UR LEUKOCYTE ESTERASE (Dip) NEGATIVE Leu/ul (NEGATIVE); UR NITRITE (Dip) NEGATIVE (NEGATIVE); UR SPECIFIC GRAVITY (Dip) 1.011 (1.003-1.030); UR TOTAL PROTEIN (Dip) NEGATIVE (NEGATIVE); UR UROBILINOGEN (Dip) NEGATIVE (NEGATIVE)
[2016-12-12] MEDS: ACCU-CHEK XX SCH (02:00)
--- NOTE | 2016-12-12 03:43 | RADRPT ---
PROCEDURE: Fluoroscopy services. CLINICAL INDICATION: Back pain TECHNIQUE: Fluoroscopy services during spinal fusion. COMPARISON: None FINDINGS: Fluoroscopy services during spinal fusion. Multiple intraoperative spot films were obtained at inte rmediate stages during this procedure and demonstrate localization, instrumentation and placement of internal metallic fixation over the dorsal spinous process sees of multiple levels of the mid-to-lo wer lumbar spine. 10.8 seconds of fluoroscopy time were employed during this procedure. IMPRESSION: Fluoroscopy services during spinal fusion. RPTAT: [facility] Physician Lydia Date Time Electronically viewed and signed by Physician Lydia on 12/12/2016 03:42 RS/
[2016-12-12] MEDS: ONDANSETRON 4 MG INJ IV PRN ×2 (04:06→09:36)
[2016-12-12] MEDS: DEXTROSE 5%-0.9% NACL 1,000 ML IV SCH (04:18)
[2016-12-12] MEDS: CEFAZOLIN 1 GM/50 ML (PMX) 50 ML IVPB SCH ×2 (05:26→13:39)
[2016-12-12 05:41] LABS: BASOPHILS % 0.1 % (0.0-2.0); HEMATOCRIT 32.7 % (42.0-52.0); HEMOGLOBIN 10.7 g/dl (14.0-18.0); LYMPHOCYTES # 1.1 10^3/ul (0.8-2.9); LYMPHOCYTES % 13.3 % (15.0-51.0); MEAN CORPUSCULAR HEMOGLOBIN 28.8 pg (29.0-33.0); MEAN CORPUSCULAR HGB CONC 32.7 g/dl (32.0-37.0); MEAN CORPUSCULAR VOLUME 87.9 fl (82.0-101.0); MEAN PLATELET VOLUME 11.1 fl (7.4-10.4); MONOCYTE # 0.5 10^3/ul (0.3-0.9); MONOCYTES % 6.2 % (0.0-11.0); PLATELET COUNT 151 10^3/UL (140-415); RED BLOOD COUNT 3.72 10^6/ul (4.70-6.10); RED CELL DISTRIBUTION WIDTH 13.1 % (11.5-14.5); WHITE BLOOD COUNT 8.3 10^3/ul (4.8-10.8)
[2016-12-12 05:55] LABS: CALCIUM 8.8 mg/dl (8.4-10.2); CREATININE 0.69 mg/dl (0.61-1.24); POTASSIUM 4.5 mmol/L (3.5-5.1)
[2016-12-12] MEDS: HYDROmorphONE 1 MG/ML SYG IV PRN ×2 (06:54→11:51)
[2016-12-12] MEDS: INSULIN ASPART [NOVOLOG] 3 ML PEN SC SCH ×3 (09:31→18:16)
[2016-12-12] MEDS: SUCRALFATE 1 GM TAB PO SCH (09:32)
[2016-12-12] MEDS: metFORMIN 500 MG TAB PO SCH ×2 (09:33→18:18)
[2016-12-12] MEDS: DOCUSATE SODIUM 100 MG CAP PO SCH ×2 (09:33→20:35)
[2016-12-12] MEDS: DICLOFENAC (EC) 75 MG TAB PO SCH ×2 (09:33→20:35)
[2016-12-12] MEDS: LISINOPRIL 10 MG TAB PO SCH (09:35)
[2016-12-12] MEDS: NICOTINE (21 MG/24 HR) PATCH TRANSDERM SCH (09:37)
--- NOTE | 2016-12-12 11:19 | RADRPT ---
PROCEDURE: CT Lumbar Spine without intravenous contrast CLINICAL INDICATION: Follow-up spinal fusion. COMPARISON: Radiograph 12/11/2016. TECHNIQUE: Axial noncontrast CT images of the lumbar spine with coronal and sagittal reformats. DOSE ESTIMATE: CTDI vol = 13 mGy. DLP = 367 mGy-cm. One or more of the following dose reduction te chniques were used: automated exposure control, adjustment of the mA and/or kV according to patient size, or use of iterative reconstruction. FINDINGS: Segmentation: For this report the last well-formed disc is labeled L5-S1. Alignment: Normal. Vertebrae: Right L4 laminectomy. The spinous processes of L3-L4 and L4-L5 have been used posteriorly . A right-sided drain courses to the L3-L4 epidural space through the laminectomy defect. No verte bral body height loss or destructive bone lesion. Mild anterior endplate spurring at L4 and L5. 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 Discs: No disc height loss. Degenerative change: T12-L1: Normal. L1-L2: Normal. L2-L3: Mild bilateral facet arthropathy, worse in the right. No significant central canal or forami nal narrowing. L3-L4: Disk bulge, mild right and moderate left facet arthropathy, and dorsal epidural fat. No bony narrowing of the spinal canal. L4-L5: Disk bulge with circumferential epidural fat which causes some degree of central canal narrow ing. No bony narrowing of the canal were foramen appear L5-S1: Circumferential epidural fat surrounds the thecal sac. No bony or canal foraminal narrowing. Para-vertebral soft tissues: Subcutaneous emphysema and edema related to recent surgery. Visualized abdomen and pelvis: Aortoiliac atherosclerotic plaque. Additional comment: Mild osseous bridging about both sacroiliac joints. IMPRESSION: Expected findings related to right L4 unilateral laminectomy and posterior spinous process fusion fr om L3-L5. A drain courses through the laminectomy site adjacent to the epidural space. RPTAT: PP Physician Eladio Date Time Electronically viewed and signed by Physician Eladio on 12/12/2016 11:19 LG/
[2016-12-12] MEDS: SOD CHLORIDE 0.9% 1,000 ML IV SCH ×2 (11:51→21:48)
--- NOTE | 2016-12-12 13:26 | PN ---
Date/Time of Note Date/Time of Note DATE: 12/12/16 TIME: 13:21 Assessment/Plan VTE Prophylaxis VTE Prophylaxis Intervention: SCD's Lines/Catheters IV Catheter Type (from Nrsg): Peripheral IV Urinary Cath still in place: Yes Reason Cath still needed: urinary retention Assessment/Plan Chief Complaint/Hosp Course Patient's complains of nausea status post surgery last night, denies any emesis , continue Zofran for nausea and [place] and Dilaudid as needed for pain. Surgical incision is intact dry, ROCKY drain with small amount of serosanguineous drainage. Assessment/Plan -L4-5 disk herniation with significant neuroforaminal narrowing with radiculopathy and weakness, status post L4-L5 transforaminal fusion by Dr. Casatneda. Continue pain management, physical therapy. -Poorly controlled diabetes mellitus with hemoglobin A1c 13.3, continue metformin, Prandin, Lantus and NovoLog. -Hypertension. Continue lisinopril and hydralazine. -Tobacco dependence, continue nicotine patch, tobacco cessation is strongly advised. Further recommendations based on clinical course. Plan of care discussed with Dr. Rubio. Problems: Exam/Review of Systems Vital Signs Vitals Vital Signs Date Time Temp Pulse Resp B/P Pulse Ox O2 Delivery O2 Flow Rate FiO2 12/12/16 08:19 97.5 84 19 130/61 96 12/12/16 05:06 Nasal Cannula 12/11/16 23:10 2.0 Intake and Output 12/11/16 12/11/16 12/12/16 15:00 23:00 07:00 Intake Total 2960 ml 200 ml Output Total 577 ml 1035 ml Balance 2383 ml -835 ml Exam Constitutional: alert, oriented Head: normocephalic Neck: supple Respiratory: normal air movement Cardiovascular: nl pulses Gastrointestinal: non-tender, soft Musculoskeletal: other (Low back surgical incision was ROCKY drain) Neurological: nl mental status Results Result Diagram: 12/12/16 0510 12/12/16 0510 Results 24 hrs Laboratory Tests Test 12/11/16 16:39 12/11/16 21:09 12/11/16 21:58 12/11/16 23:42 Bedside Glucose 134 220 239 H Urine Color STRAW Urine Clarity CLEAR Urine pH 5.0 Urine Specific [place] 1.011 Urine Ketones NEGATIVE Urine Nitrite NEGATIVE Urine Bilirubin NEGATIVE Urine Urobilinogen NEGATIVE Urine Leukocyte Esterase NEGATIVE Urine Hemoglobin NEGATIVE Urine Glucose NEGATIVE Urine Total Protein NEGATIVE Test 12/12/16 04:10 12/12/16 05:10 12/12/16 08:35 12/12/16 12:41 Bedside Glucose 249 H 225 H 169 White Blood Count 8.3 # Red Blood Count 3.72 L Hemoglobin 10.7 L Hematocrit 32.7 L Mean Corpuscular Volume 87.9 Mean Corpuscular Hemoglobin 28.8 L Mean Corpuscular Hemoglobin Concent 32.7 Red Cell Distribution Width 13.1 Platelet Count 151 Mean Platelet Volume 11.1 H Neutrophils % 80.0 H Lymphocytes % 13.3 L Monocytes % 6.2 Eosinophils % 0.0 Basophils % 0.1 Nucleated Red Blood Cells % 0.0 Neutrophils # (Manual) 6.6 Lymphocytes # 1.1 Monocytes # 0.5 Eosinophils # 0.0 Basophils # 0.0 Nucleated Red Blood Cells # 0.0 Sodium Level 135 Potassium Level 4.5 Chloride Level 102 Carbon Dioxide Level 25 Anion Gap 13 Blood Urea Nitrogen 19 Creatinine 0.69 Glucose Level 241 H Calcium Level 8.8 Medications Medications Current Medications Tamsulosin HCl (Flomax) 0.4 mg HS PO Last administered on 12/10/16 23:11; Admin Dose 0.4 MG; Start 12/08/16 at 21:00 Sucralfate (Carafate) 1 gm DAILY PO Last administered on 12/12/16 09:32; Admin Dose 1 GM; Start 12/08/16 at 09:00 Diclofenac Sodium (Voltaren) 75 mg BID PO Last administered on 12/12/16 09:33 ; Admin Dose 75 MG; Start 12/07/16 at 22:00 Diagnostic Test (Pha) (Accu-Chek) 1 ea 02 XX Last administered on 12/11/16 02: 07; Admin Dose 1 EA; Start 12/08/16 at 02:00 Nicotine (Nicoderm 21 Mg/ 24hr) 1 patch DAILY TRANSDERM Last administered on 09:37; Admin Dose 1 PATCH; Start 12/08/16 at 00:00 Miscellaneous Information 1 ea NOTE XX ; Start 12/08/16 at 00:00 Glucose (Glutose) 15 gm Q15M PRN PO DECREASED GLUCOSE; Start 12/08/16 at 00:00 Glucose (Glutose) 22.5 gm Q15M PRN PO DECREASED GLUCOSE; Start 12/08/16 at 00: 00 Dextrose (D50w Syringe) 25 ml Q15M PRN IV DECREASED GLUCOSE; Start 12/08/16 at 00:00 Dextrose (D50w Syringe) 50 ml Q15M PRN IV DECREASED GLUCOSE; Start 12/08/16 at 00:00 Glucagon (Glucagen) 1 mg Q15M PRN IM DECREASED GLUCOSE; Start 12/08/16 at 00:00 Glucose (Glutose) 15 gm Q15M PRN BUCCAL DECREASED GLUCOSE; Start 12/08/16 at 00 :00 Acetaminophen (Tylenol Tab) 650 mg Q4H PRN PO PAIN AND OR ELEVATED TEMP Last administered on 12/09/16 07:37; Admin Dose 650 MG; Start 12/08/16 at 09:30 Morphine Sulfate (morphine) 2 mg Q3H PRN IV BREAKTHROUGH PAIN; Start 12/08/16 at 09:30 Hydralazine HCl (Apresoline) 10 mg Q4H PRN IV ELEVATED BLOOD PRESSURE Last administered on 12/09/16 14:10; Admin Dose 10 MG; Start 12/08/16 at 09:30 Insulin Glargine (Lantus) 10 unit DAILY@20 SC Last administered on 12/11/16 23 :47; Admin Dose 10 UNIT; Start 12/08/16 at 20:00 Lisinopril (Zestril) 10 mg DAILY PO Last administered on 12/12/16 09:35; Admin Dose 10 MG; Start 12/09/16 at 09:00 Insulin Aspart (Novolog Insulin Pen) (Adult SC Insulin - Mild Algorithm)... Q4 SC Last administered on 12/12/16 09:36; Admin Dose 3 UNIT; Start 12/11/16 at 17:00 Acetaminophen/ Hydrocodone Bitart ([place] (5/325)) 1 tab Q4H PRN PO PAIN LEVEL 1 -5; Start 12/11/16 at 18:00 Docusate Sodium (Colace) 100 mg BID PO Last administered on 12/12/16 09:33; Admin Dose 100 MG; Start 12/11/16 at 18:00 Naloxone HCl (Narcan) 0.2 mg Q2M PRN IV RR 8 BREATHS/MIN OR LESS; Start at 18:00 Hydromorphone HCl (Dilaudid) 1 mg Q4H PRN IV PAIN Last administered on 11:51; Admin Dose 1 MG; Start 12/11/16 at 18:00 Ondansetron HCl 4 mg 4 mg Q6H PRN IV NAUSEA AND/OR VOMITING Last administered on 12/12/16 09:36; Admin Dose 4 MG; Start 12/12/16 at 02:05 Sodium Chloride (NS) 1,000 ml @ 70 mls/hr [id number] IV Last administered on 12/12 11:51; Admin Dose 70 MLS/HR; Start 12/12/16 at 07:30 HUAN CAICEDO Dec 12, 2016 13:26
--- NOTE | 2016-12-12 14:42 | PN ---
Date/Time of Note Date/Time of Note DATE: 12/12/16 TIME: 14:37 Assessment/Plan VTE Prophylaxis VTE Prophylaxis Intervention: ambulation Lines/Catheters [facility] Peripheral IV Urinary Cath still in place: No Assessment/Plan Chief Complaint/Hosp Course impression s/p L4-5 decompression wit L3-5 ISF placement. POD #1 slight improvement in LE radic expected LBP LUISITO with moderate drainage post op CT Lspine stable plan cont luisito drain until clears pt/ot with brace cont supportive care IS x 10 Problems: Subjective 24 Hr Interval Summary Subjective hx not possible: other (S: s/p L4-5 decompression with L3-5 ISF placement. POD #1 ) Exam/Review of Systems Vital Signs Vitals Vital Signs Date Time Temp Pulse Resp B/P Pulse Ox O2 Delivery O2 Flow Rate FiO2 12/12/16 08:19 97.5 84 19 130/61 96 12/12/16 05:06 Nasal Cannula 12/11/16 23:10 2.0 Intake and Output 12/11/16 12/11/16 12/12/16 15:00 23:00 07:00 Intake Total 2960 ml 200 ml Output Total 577 ml 1035 ml Balance 2383 ml -835 ml Exam Cardiovascular: regular rate and rhythm Neurological: other (MS: AAOX4 CN: PERRL M: FC x 4 S: Slight improvement bilat LE radic/numbness) Results Result Diagram: 12/12/16 0510 12/12/16 0510 Results 24 hrs Laboratory Tests Test 12/11/16 16:39 12/11/16 21:09 12/11/16 21:58 12/11/16 23:42 Bedside Glucose 134 220 239 H Urine Color STRAW Urine Clarity CLEAR Urine pH 5.0 Urine Specific [place] 1.011 Urine Ketones NEGATIVE Urine Nitrite NEGATIVE Urine Bilirubin NEGATIVE Urine Urobilinogen NEGATIVE Urine Leukocyte Esterase NEGATIVE Urine Hemoglobin NEGATIVE Urine Glucose NEGATIVE Urine Total Protein NEGATIVE Test 12/12/16 04:10 12/12/16 05:10 12/12/16 08:35 12/12/16 12:41 Bedside Glucose 249 H 225 H 169 White Blood Count 8.3 # Red Blood Count 3.72 L Hemoglobin 10.7 L Hematocrit 32.7 L Mean Corpuscular Volume 87.9 Mean Corpuscular Hemoglobin 28.8 L Mean Corpuscular Hemoglobin Concent 32.7 Red Cell Distribution Width 13.1 Platelet Count 151 Mean Platelet Volume 11.1 H Neutrophils % 80.0 H Lymphocytes % 13.3 L Monocytes % 6.2 Eosinophils % 0.0 Basophils % 0.1 Nucleated Red Blood Cells % 0.0 Neutrophils # (Manual) 6.6 Lymphocytes # 1.1 Monocytes # 0.5 Eosinophils # 0.0 Basophils # 0.0 Nucleated Red Blood Cells # 0.0 Sodium Level 135 Potassium Level 4.5 Chloride Level 102 Carbon Dioxide Level 25 Anion Gap 13 Blood Urea Nitrogen 19 Creatinine 0.69 Glucose Level 241 H Calcium Level 8.8 Medications Medications Current Medications Tamsulosin HCl (Flomax) 0.4 mg HS PO Last administered on 12/10/16 23:11; Admin Dose 0.4 MG; Start 12/08/16 at 21:00 Sucralfate (Carafate) 1 gm DAILY PO Last administered on 12/12/16 09:32; Admin Dose 1 GM; Start 12/08/16 at 09:00 Diclofenac Sodium (Voltaren) 75 mg BID PO Last administered on 12/12/16 09:33 ; Admin Dose 75 MG; Start 12/07/16 at 22:00 Diagnostic Test (Pha) (Accu-Chek) 1 ea 02 XX Last administered on 12/11/16 02: 07; Admin Dose 1 EA; Start 12/08/16 at 02:00 Nicotine (Nicoderm 21 Mg/ 24hr) 1 patch DAILY TRANSDERM Last administered on 09:37; Admin Dose 1 PATCH; Start 12/08/16 at 00:00 Miscellaneous Information 1 ea NOTE XX ; Start 12/08/16 at 00:00 Glucose (Glutose) 15 gm Q15M PRN PO DECREASED GLUCOSE; Start 12/08/16 at 00:00 Glucose (Glutose) 22.5 gm Q15M PRN PO DECREASED GLUCOSE; Start 12/08/16 at 00: 00 Dextrose (D50w Syringe) 25 ml Q15M PRN IV DECREASED GLUCOSE; Start 12/08/16 at 00:00 Dextrose (D50w Syringe) 50 ml Q15M PRN IV DECREASED GLUCOSE; Start 12/08/16 at 00:00 Glucagon (Glucagen) 1 mg Q15M PRN IM DECREASED GLUCOSE; Start 12/08/16 at 00:00 Glucose (Glutose) 15 gm Q15M PRN BUCCAL DECREASED GLUCOSE; Start 12/08/16 at 00 :00 Acetaminophen (Tylenol Tab) 650 mg Q4H PRN PO PAIN AND OR ELEVATED TEMP Last administered on 12/09/16 07:37; Admin Dose 650 MG; Start 12/08/16 at 09:30 Morphine Sulfate (morphine) 2 mg Q3H PRN IV BREAKTHROUGH PAIN; Start 12/08/16 at 09:30 Hydralazine HCl (Apresoline) 10 mg Q4H PRN IV ELEVATED BLOOD PRESSURE Last administered on 12/09/16 14:10; Admin Dose 10 MG; Start 12/08/16 at 09:30 Insulin Glargine (Lantus) 10 unit DAILY@20 SC Last administered on 12/11/16 23 :47; Admin Dose 10 UNIT; Start 12/08/16 at 20:00 Lisinopril (Zestril) 10 mg DAILY PO Last administered on 12/12/16 09:35; Admin Dose 10 MG; Start 12/09/16 at 09:00 Insulin Aspart (Novolog Insulin Pen) (Adult SC Insulin - Mild Algorithm)... Q4 SC Last administered on 12/12/16 13:39; Admin Dose 1 UNIT; Start 12/11/16 at 17:00 Acetaminophen/ Hydrocodone Bitart ([place] (5/325)) 1 tab Q4H PRN PO PAIN LEVEL 1 -5; Start 12/11/16 at 18:00 Docusate Sodium (Colace) 100 mg BID PO Last administered on 12/12/16 09:33; Admin Dose 100 MG; Start 12/11/16 at 18:00 Naloxone HCl (Narcan) 0.2 mg Q2M PRN IV RR 8 BREATHS/MIN OR LESS; Start at 18:00 Hydromorphone HCl 1 mg 1 mg Q4H PRN IV PAIN Last administered on 12/12/16 11: 51; Admin Dose 1 MG; Start 12/11/16 at 18:00 Sodium Chloride (NS) 1,000 ml @ 70 mls/hr [id number] IV Last administered on 12/12 11:51; Admin Dose 70 MLS/HR; Start 12/12/16 at 07:30 Ondansetron HCl (Zofran Inj) 4 mg Q4 PRN IV NAUSEA AND/OR VOMITING; Start 12/12 at 17:00 ZHANE LANCASTER NP Dec 12, 2016 14:42
[2016-12-12] MEDS ORDERED: ONDANSETRON 4 MG INJ IV PRN (17:00)
[2016-12-12] MEDS: HYDROCODONE/APAP (5/325) TAB PO PRN (18:17)
[2016-12-12] MEDS: REPAGLINIDE 2 MG TAB PO SCH (18:17)
[2016-12-12] MEDS: TAMSULOSIN (SR) 0.4 MG CAP PO SCH (20:35)
[2016-12-12] MEDS: INSULIN GLARGINE [LANtus] 3 ML PEN SC SCH (20:43)
[2016-12-13] MEDS: SOD CHLORIDE 0.9% 1,000 ML IV SCH (01:27)
[2016-12-13] MEDS: ACCU-CHEK XX SCH (01:30)
[2016-12-13 03:33] VITALS: BP 102/57; RESP 22
[2016-12-13] MEDS: HYDROCODONE/APAP (5/325) TAB PO PRN ×2 (03:48→20:58)
[2016-12-13] MEDS: INSULIN ASPART [NOVOLOG] 3 ML PEN SC SCH ×7 (07:20→20:25)
[2016-12-13 08:36] VITALS: BP 123/63; RESP 22
[2016-12-13] MEDS: SUCRALFATE 1 GM TAB PO SCH (09:01)
[2016-12-13] MEDS: LISINOPRIL 10 MG TAB PO SCH (09:01)
[2016-12-13] MEDS: DICLOFENAC (EC) 75 MG TAB PO SCH ×2 (09:01→20:21)
[2016-12-13] MEDS: REPAGLINIDE 2 MG TAB PO SCH ×3 (09:01→17:58)
[2016-12-13] MEDS: metFORMIN 500 MG TAB PO SCH ×2 (09:02→17:59)
[2016-12-13] MEDS: DOCUSATE SODIUM 100 MG CAP PO SCH ×2 (09:02→20:21)
[2016-12-13] MEDS: NICOTINE (21 MG/24 HR) PATCH TRANSDERM SCH (09:03)
[2016-12-13 13:20] VITALS: BP 114/55; RESP 22
--- NOTE | 2016-12-13 14:44 | PN ---
Date/Time of Note Date/Time of Note DATE: 12/13/16 TIME: 14:43 Assessment/Plan VTE Prophylaxis VTE Prophylaxis Intervention: other Lines/Catheters IV Catheter Type (from Nrsg): Peripheral IV Urinary Cath still in place: Yes Reason Cath still needed: urinary retention Assessment/Plan Assessment/Plan -L4-5 disk herniation with significant neuroforaminal narrowing with radiculopathy and weakness, status post L4-L5 transforaminal fusion by Dr. Castaneda. Continue pain management, physical therapy. -Poorly controlled diabetes mellitus with hemoglobin A1c 13.3, continue metformin, Prandin, Lantus and NovoLog. -Hypertension. Continue lisinopril and hydralazine. -Tobacco dependence, continue nicotine patch, tobacco cessation is strongly advised. Further recommendations based on clinical course. Plan of care discussed with Dr. Rubio. Subjective 24 Hr Interval Summary Free Text/Dictation resting, refused insulin, BS stable. dw staff- no new events reported overnight. Respiratory: no complaints Cardiovascular: no complaints Gastrointestinal: no complaints Genitourinary: no complaints Musculoskeletal: no complaints Skin: no complaints Neurologic: other Exam/Review of Systems Vital Signs Vitals Vital Signs Date Time Temp Pulse Resp B/P Pulse Ox O2 Delivery O2 Flow Rate FiO2 12/13/16 08:36 98.3 77 22 123/63 99 12/12/16 05:06 Nasal Cannula 12/11/16 23:10 2.0 Intake and Output 12/12/16 12/12/16 12/13/16 15:00 23:00 07:00 Intake Total 1050 ml 1700 ml Output Total 1880 ml 1320 ml Balance -830 ml 380 ml Exam Constitutional: alert, oriented, well developed Respiratory: clear to auscultation, normal air movement Cardiovascular: nl pulses, regular rate and rhythm Musculoskeletal: nl extremities to inspection Extremities: normal pulses Neurological: nl mental status, nl speech, other (sp back surgery with drain) Results Result Diagram: 12/12/16 0510 12/12/16 0510 Results 24 hrs Laboratory Tests Test 12/12/16 17:37 12/12/16 20:33 12/13/16 01:25 12/13/16 08:59 Bedside Glucose 214 187 136 88 Test 12/13/16 12:34 Bedside Glucose 118 Medications Medications Current Medications Tamsulosin HCl (Flomax) 0.4 mg HS PO Last administered on 12/12/16 20:35; Admin Dose 0.4 MG; Start 12/08/16 at 21:00 Sucralfate (Carafate) 1 gm DAILY PO Last administered on 12/13/16 09:01; Admin Dose 1 GM; Start 12/08/16 at 09:00 Diclofenac Sodium (Voltaren) 75 mg BID PO Last administered on 12/13/16 09:01 ; Admin Dose 75 MG; Start 12/07/16 at 22:00 Nicotine (Nicoderm 21 Mg/ 24hr) 1 patch DAILY TRANSDERM Last administered on 09:03; Admin Dose 1 PATCH; Start 12/08/16 at 00:00 Miscellaneous Information 1 ea NOTE XX ; Start 12/08/16 at 00:00 Glucose (Glutose) 15 gm Q15M PRN PO DECREASED GLUCOSE; Start 12/08/16 at 00:00 Glucose (Glutose) 22.5 gm Q15M PRN PO DECREASED GLUCOSE; Start 12/08/16 at 00: 00 Dextrose (D50w Syringe) 25 ml Q15M PRN IV DECREASED GLUCOSE; Start 12/08/16 at 00:00 Dextrose (D50w Syringe) 50 ml Q15M PRN IV DECREASED GLUCOSE; Start 12/08/16 at 00:00 Glucagon (Glucagen) 1 mg Q15M PRN IM DECREASED GLUCOSE; Start 12/08/16 at 00:00 Glucose (Glutose) 15 gm Q15M PRN BUCCAL DECREASED GLUCOSE; Start 12/08/16 at 00 :00 Acetaminophen (Tylenol Tab) 650 mg Q4H PRN PO PAIN AND OR ELEVATED TEMP Last administered on 12/09/16 07:37; Admin Dose 650 MG; Start 12/08/16 at 09:30 Morphine Sulfate (morphine) 2 mg Q3H PRN IV BREAKTHROUGH PAIN; Start 12/08/16 at 09:30 Hydralazine HCl (Apresoline) 10 mg Q4H PRN IV ELEVATED BLOOD PRESSURE Last administered on 12/09/16 14:10; Admin Dose 10 MG; Start 12/08/16 at 09:30 Insulin Glargine (Lantus) 10 unit DAILY@20 SC Last administered on 12/12/16 20 :43; Admin Dose 10 UNIT; Start 12/08/16 at 20:00 Lisinopril (Zestril) 10 mg DAILY PO Last administered on 12/13/16 09:01; Admin Dose 10 MG; Start 12/09/16 at 09:00 Acetaminophen/ Hydrocodone Bitart ([place] (5/325)) 1 tab Q4H PRN PO PAIN LEVEL 1 -5 Last administered on 12/13/16 03:48; Admin Dose 1 TAB; Start 12/11/16 at 18: 00 Docusate Sodium (Colace) 100 mg BID PO Last administered on 12/13/16 09:02; Admin Dose 100 MG; Start 12/11/16 at 18:00 Naloxone HCl (Narcan) 0.2 mg Q2M PRN IV RR 8 BREATHS/MIN OR LESS; Start at 18:00 Hydromorphone HCl 1 mg 1 mg Q4H PRN IV PAIN Last administered on 12/12/16 11: 51; Admin Dose 1 MG; Start 12/11/16 at 18:00 Sodium Chloride (NS) 1,000 ml @ 70 mls/hr [id number] IV Last administered on 12/13 01:27; Admin Dose 70 MLS/HR; Start 12/12/16 at 07:30 Ondansetron HCl (Zofran Inj) 4 mg Q4 PRN IV NAUSEA AND/OR VOMITING; Start 12/12 at 17:00 Diagnostic Test (Pha) (Accu-Chek) 1 ea 02 XX Last administered on 12/13/16 01: 30; Admin Dose 1 EA; Start 12/13/16 at 02:00 JESSICA HERNANDEZ Dec 13, 2016 14:44
[2016-12-13] MEDS: INSULIN GLARGINE [LANtus] 3 ML PEN SC SCH (20:00)
[2016-12-13] MEDS: TAMSULOSIN (SR) 0.4 MG CAP PO SCH (20:21)
[2016-12-13 21:06] VITALS: BP 140/63; RESP 20
[2016-12-14] MEDS: ACCU-CHEK XX SCH (02:00)
[2016-12-14] MEDS: SOD CHLORIDE 0.9% 1,000 ML IV SCH ×2 (02:24→15:14)
[2016-12-14 03:20] VITALS: BP 109/55; RESP 20
[2016-12-14] MEDS: INSULIN ASPART [NOVOLOG] 3 ML PEN SC SCH ×7 (07:20→21:00)
[2016-12-14 07:56] VITALS: BP 142/70; RESP 16
[2016-12-14] MEDS: metFORMIN 500 MG TAB PO SCH ×2 (09:05→17:51)
[2016-12-14] MEDS: SUCRALFATE 1 GM TAB PO SCH (09:05)
[2016-12-14] MEDS: DOCUSATE SODIUM 100 MG CAP PO SCH ×2 (09:05→21:00)
[2016-12-14] MEDS: DICLOFENAC (EC) 75 MG TAB PO SCH ×2 (09:05→20:59)
[2016-12-14] MEDS: LISINOPRIL 10 MG TAB PO SCH (09:06)
[2016-12-14] MEDS: NICOTINE (21 MG/24 HR) PATCH TRANSDERM SCH (09:07)
[2016-12-14] MEDS: REPAGLINIDE 2 MG TAB PO SCH ×3 (09:14→17:51)
[2016-12-14] MEDS: HYDROCODONE/APAP (5/325) TAB PO PRN ×2 (10:13→21:21)
--- NOTE | 2016-12-14 12:18 | PN ---
Date/Time of Note Date/Time of Note DATE: 12/14/16 TIME: 12:15 Assessment/Plan VTE Prophylaxis VTE Prophylaxis Intervention: SCD's Lines/Catheters IV [facility] Type ([facility] Saline Lock Urinary Cath still in place: No Assessment/Plan Chief Complaint/Hosp Course Patient's complains of back pain, able to participate in physical therapy, blood sugar is well controlled. Assessment/Plan -L4-5 disk herniation with significant neuroforaminal narrowing with radiculopathy and weakness, status post L4-L5 transforaminal fusion by Dr. Castaneda. Continue pain management, physical therapy. -Poorly controlled diabetes mellitus with hemoglobin A1c 13.3, continue metformin, Prandin, Lantus and NovoLog. -Hypertension. Continue lisinopril and hydralazine. -Tobacco dependence, continue nicotine patch, tobacco cessation is strongly advised. -Homelessness, case management for sniff placement for recovery. Further recommendations based on clinical course. Plan of care discussed with Dr. Rubio. Problems: Exam/Review of Systems Vital Signs Vitals Vital Signs Date Time Temp Pulse Resp B/P Pulse Ox O2 Delivery O2 Flow Rate FiO2 12/14/16 07:56 97.7 75 16 142/70 12/14/16 03:20 100 12/12/16 05:06 Nasal Cannula 12/11/16 23:10 2.0 Intake and Output 12/13/16 12/13/16 12/14/16 15:00 23:00 07:00 Intake Total 1650 ml 300 ml Output Total 840 ml Balance 810 ml 300 ml Exam Constitutional: alert, oriented Head: normocephalic Neck: supple Respiratory: normal air movement Cardiovascular: nl pulses Gastrointestinal: non-tender, soft Musculoskeletal: other (Low back surgical incision was ROCKY drain) Neurological: nl mental status Results Result Diagram: 12/12/16 0510 12/12/16 0510 Results 24 hrs Laboratory Tests Test 12/13/16 12:34 12/13/16 17:58 12/13/16 20:24 12/14/16 09:04 Bedside Glucose 118 157 135 155 Medications Medications Current Medications Tamsulosin HCl (Flomax) 0.4 mg HS PO Last administered on 12/13/16t 20:21; Admin Dose 0.4 MG; Start 12/08/16 at 21:00 Sucralfate (Carafate) 1 gm DAILY PO Last administered on 12/14/16 09:05; Admin Dose 1 GM; Start 12/08/16 at 09:00 Diclofenac Sodium (Voltaren) 75 mg BID PO Last administered on 12/14/16 09:05 ; Admin Dose 75 MG; Start 12/07/16 at 22:00 Nicotine (Nicoderm 21 Mg/ 24hr) 1 patch DAILY TRANSDERM Last administered on 09:07; Admin Dose 1 PATCH; Start 12/08/16 at 00:00 Miscellaneous Information 1 ea NOTE XX ; Start 12/08/16 at 00:00 Glucose (Glutose) 15 gm Q15M PRN PO DECREASED GLUCOSE; Start 12/08/16 at 00:00 Glucose (Glutose) 22.5 gm Q15M PRN PO DECREASED GLUCOSE; Start 12/08/16 at 00: 00 Dextrose (D50w Syringe) 25 ml Q15M PRN IV DECREASED GLUCOSE; Start 12/08/16 at 00:00 Dextrose (D50w Syringe) 50 ml Q15M PRN IV DECREASED GLUCOSE; Start 12/08/16 at 00:00 Glucagon (Glucagen) 1 mg Q15M PRN IM DECREASED GLUCOSE; Start 12/08/16 at 00:00 Glucose (Glutose) 15 gm Q15M PRN BUCCAL DECREASED GLUCOSE; Start 12/08/16 at 00 :00 Acetaminophen (Tylenol Tab) 650 mg Q4H PRN PO PAIN AND OR ELEVATED TEMP Last administered on 12/09/16 07:37; Admin Dose 650 MG; Start 12/08/16 at 09:30 Morphine Sulfate (morphine) 2 mg Q3H PRN IV BREAKTHROUGH PAIN; Start 12/08/16 at 09:30 Hydralazine HCl (Apresoline) 10 mg Q4H PRN IV ELEVATED BLOOD PRESSURE Last administered on 12/09/16 14:10; Admin Dose 10 MG; Start 12/08/16 at 09:30 Insulin Glargine (Lantus) 10 unit DAILY@20 SC Last administered on 12/12/16 20 :43; Admin Dose 10 UNIT; Start 12/08/16 at 20:00 Lisinopril (Zestril) 10 mg DAILY PO Last administered on 12/14/16 09:06; Admin Dose 10 MG; Start 12/09/16 at 09:00 Acetaminophen/ Hydrocodone Bitart ([place] (5/325)) 1 tab Q4H PRN PO PAIN LEVEL 1 -5 Last administered on 12/14/16 10:13; Admin Dose 1 TAB; Start 12/11/16 at 18: 00 Docusate Sodium (Colace) 100 mg BID PO Last administered on 12/14/16 09:05; Admin Dose 100 MG; Start 12/11/16 at 18:00 Naloxone HCl (Narcan) 0.2 mg Q2M PRN IV RR 8 BREATHS/MIN OR LESS; Start at 18:00 Hydromorphone HCl 1 mg 1 mg Q4H PRN IV PAIN Last administered on 12/12/16 11: 51; Admin Dose 1 MG; Start 12/11/16 at 18:00 Sodium Chloride (NS) 1,000 ml @ 70 mls/hr [id number] IV Last administered on 12/13 01:27; Admin Dose 70 MLS/HR; Start 12/12/16 at 07:30 Ondansetron HCl (Zofran Inj) 4 mg Q4 PRN IV NAUSEA AND/OR VOMITING; Start 12/12 at 17:00 Diagnostic Test (Pha) (Accu-Chek) 1 ea 02 XX Last administered on 12/13/16 01: 30; Admin Dose 1 EA; Start 12/13/16 at 02:00 HUAN CAICEDO Dec 14, 2016 12:18
[2016-12-14 13:44] VITALS: BP 153/71; RESP 16
--- NOTE | 2016-12-14 14:28 | PN ---
Date/Time of Note Date/Time of Note DATE: 12/14/16 TIME: 14:26 Assessment/Plan VTE Prophylaxis VTE Prophylaxis Intervention: ambulation, SCD's Lines/Catheters IV Catheter Type (from Nrsg): Saline Lock Urinary Cath still in place: No Assessment/Plan Chief Complaint/Hosp Course impression s/p L4-5 decompression wit L3-5 ISF placement. improvement in LE radic post surgical pain improving plan cont supportive care dc drain dc home in am Problems: Subjective 24 Hr Interval Summary Free Text/Dictation S: doing well bilat ue/le strength stable Exam/Review of Systems Vital Signs Vitals Vital Signs Date Time Temp Pulse Resp B/P Pulse Ox O2 Delivery O2 Flow Rate FiO2 12/14/16 13:44 97.6 77 16 153/71 99 12/12/16 05:06 Nasal Cannula 12/11/16 23:10 2.0 Intake and Output 12/13/16 12/13/16 12/14/16 14:59 22:59 06:59 Intake Total 1650 ml 300 ml Output Total 70 ml 840 ml Balance -70 ml 810 ml 300 ml Exam Neurological: other (ms; aaox3 cn: perrl m: fc x 4 ) Results Result Diagram: 12/12/16 0510 12/12/16 0510 Results 24 hrs Laboratory Tests Test 12/13/16 17:58 12/13/16 20:24 12/14/16 09:04 12/14/16 13:04 Bedside Glucose 157 135 155 217 Medications Medications Current Medications Tamsulosin HCl (Flomax) 0.4 mg HS PO Last administered on 12/13/16 20:21; Admin Dose 0.4 MG; Start 12/08/16 at 21:00 Sucralfate (Carafate) 1 gm DAILY PO Last administered on 12/14/16 09:05; Admin Dose 1 GM; Start 12/08/16 at 09:00 Diclofenac Sodium (Voltaren) 75 mg BID PO Last administered on 12/14/16 09:05 ; Admin Dose 75 MG; Start 12/07/16 at 22:00 Nicotine (Nicoderm 21 Mg/ 24hr) 1 patch DAILY TRANSDERM Last administered on 09:07; Admin Dose 1 PATCH; Start 12/08/16 at 00:00 Miscellaneous Information 1 ea NOTE XX ; Start 12/08/16 at 00:00 Glucose (Glutose) 15 gm Q15M PRN PO DECREASED GLUCOSE; Start 12/08/16 at 00:00 Glucose (Glutose) 22.5 gm Q15M PRN PO DECREASED GLUCOSE; Start 12/08/16 at 00: 00 Dextrose (D50w Syringe) 25 ml Q15M PRN IV DECREASED GLUCOSE; Start 12/08/16 at 00:00 Dextrose (D50w Syringe) 50 ml Q15M PRN IV DECREASED GLUCOSE; Start 12/08/16 at 00:00 Glucagon (Glucagen) 1 mg Q15M PRN IM DECREASED GLUCOSE; Start 12/08/16 at 00:00 Glucose (Glutose) 15 gm Q15M PRN BUCCAL DECREASED GLUCOSE; Start 12/08/16 at 00 :00 Acetaminophen (Tylenol Tab) 650 mg Q4H PRN PO PAIN AND OR ELEVATED TEMP Last administered on 12/09/16 07:37; Admin Dose 650 MG; Start 12/08/16 at 09:30 Morphine Sulfate (morphine) 2 mg Q3H PRN IV BREAKTHROUGH PAIN; Start 12/08/16 at 09:30 Hydralazine HCl (Apresoline) 10 mg Q4H PRN IV ELEVATED BLOOD PRESSURE Last administered on 12/09/16 14:10; Admin Dose 10 MG; Start 12/08/16 at 09:30 Insulin Glargine (Lantus) 10 unit DAILY@20 SC Last administered on 12/12/16 20 :43; Admin Dose 10 UNIT; Start 12/08/16 at 20:00 Lisinopril (Zestril) 10 mg DAILY PO Last administered on 12/14/16 09:06; Admin Dose 10 MG; Start 12/09/16 at 09:00 Acetaminophen/ Hydrocodone Bitart ([place] (5/325)) 1 tab Q4H PRN PO PAIN LEVEL 1 -5 Last administered on 12/14/16 10:13; Admin Dose 1 TAB; Start 12/11/16 at 18: 00 Docusate Sodium (Colace) 100 mg BID PO Last administered on 12/14/16 09:05; Admin Dose 100 MG; Start 12/11/16 at 18:00 Naloxone HCl (Narcan) 0.2 mg Q2M PRN IV RR 8 BREATHS/MIN OR LESS; Start at 18:00 Hydromorphone HCl 1 mg 1 mg Q4H PRN IV PAIN Last administered on 12/12/16 11: 51; Admin Dose 1 MG; Start 12/11/16 at 18:00 Sodium Chloride (NS) 1,000 ml @ 70 mls/hr [id number] IV Last administered on 12/13 01:27; Admin Dose 70 MLS/HR; Start 12/12/16 at 07:30 Ondansetron HCl (Zofran Inj) 4 mg Q4 PRN IV NAUSEA AND/OR VOMITING; Start 12/12 at 17:00 Diagnostic Test (Pha) (Accu-Chek) 1 ea 02 XX Last administered on 12/13/16 01: 30; Admin Dose 1 EA; Start 12/13/16 at 02:00 ZHANE LANCASTER NP Dec 14, 2016 14:28
[2016-12-14] MEDS: TAMSULOSIN (SR) 0.4 MG CAP PO SCH (20:59)
[2016-12-14] MEDS: INSULIN GLARGINE [LANtus] 3 ML PEN SC SCH (21:04)
[2016-12-14 21:24] VITALS: BP 155/70; RESP 22
[2016-12-15] MEDS: ACCU-CHEK XX SCH (01:17)
[2016-12-15] MEDS: HYDROCODONE/APAP (5/325) TAB PO PRN ×4 (01:21→23:53)
[2016-12-15 06:02] LABS: BASOPHILS % 0.4 % (0.0-2.0); EOSINOPHILS # 0.2 10^3/ul (0.0-0.5); EOSINOPHILS % 3.4 % (0.0-7.0); HEMATOCRIT 30.3 % (42.0-52.0); HEMOGLOBIN 9.9 g/dl (14.0-18.0); LYMPHOCYTES # 2.4 10^3/ul (0.8-2.9); LYMPHOCYTES % 50.9 % (15.0-51.0); MEAN CORPUSCULAR HEMOGLOBIN 28.7 pg (29.0-33.0); MEAN CORPUSCULAR HGB CONC 32.7 g/dl (32.0-37.0); MEAN CORPUSCULAR VOLUME 87.8 fl (82.0-101.0); MEAN PLATELET VOLUME 11.2 fl (7.4-10.4); MONOCYTE # 0.5 10^3/ul (0.3-0.9); MONOCYTES % 10.7 % (0.0-11.0); NEUTROPHILS % 34.4 % (39.0-77.0); PLATELET COUNT 147 10^3/UL (140-415); RED BLOOD COUNT 3.45 10^6/ul (4.70-6.10); RED CELL DISTRIBUTION WIDTH 12.9 % (11.5-14.5); WHITE BLOOD COUNT 4.7 10^3/ul (4.8-10.8)
[2016-12-15 06:30] LABS: CALCIUM 9.1 mg/dl (8.4-10.2); CREATININE 0.81 mg/dl (0.61-1.24); POTASSIUM 3.9 mmol/L (3.5-5.1)
[2016-12-15] MEDS: SOD CHLORIDE 0.9% 1,000 ML IV SCH ×2 (07:00→21:18)
[2016-12-15] MEDS: INSULIN ASPART [NOVOLOG] 3 ML PEN SC SCH ×7 (07:20→21:00)
[2016-12-15 07:22] VITALS: BP 105/53; RESP 18
[2016-12-15] MEDS: LISINOPRIL 10 MG TAB PO SCH (09:00)
[2016-12-15] MEDS: DOCUSATE SODIUM 100 MG CAP PO SCH ×2 (09:29→21:01)
[2016-12-15] MEDS: SUCRALFATE 1 GM TAB PO SCH (09:29)
[2016-12-15] MEDS: DICLOFENAC (EC) 75 MG TAB PO SCH ×2 (09:29→21:01)
[2016-12-15] MEDS: NICOTINE (21 MG/24 HR) PATCH TRANSDERM SCH (09:30)
[2016-12-15] MEDS: metFORMIN 500 MG TAB PO SCH ×2 (09:31→17:48)
[2016-12-15] MEDS: REPAGLINIDE 2 MG TAB PO SCH ×3 (09:35→17:48)
--- NOTE | 2016-12-15 09:56 | PN ---
Date/Time of Note Date/Time of Note DATE: 12/15/16 TIME: 09:55 Assessment/Plan VTE Prophylaxis VTE Prophylaxis Intervention: other Lines/Catheters IV Catheter Type (from Nrsg): Saline Lock Urinary Cath still in place: No Assessment/Plan Chief Complaint/Hosp Course -L4-5 disk herniation with significant neuroforaminal narrowing with radiculopathy and weakness, status post L4-L5 transforaminal fusion by Dr. Castaneda. Continue pain management, physical therapy. -Poorly controlled diabetes mellitus with hemoglobin A1c 13.3, continue metformin, Prandin, Lantus and NovoLog. -Hypertension. Continue lisinopril and hydralazine. -Tobacco dependence, continue nicotine patch, tobacco cessation is strongly advised. -Homelessness, case management for sniff placement for recovery. Problems: Subjective 24 Hr Interval Summary Free Text/Dictation Patient continues to have back pain Exam/Review of Systems Vital Signs Vitals Vital Signs Date Time Temp Pulse Resp B/P Pulse Ox O2 Delivery O2 Flow Rate FiO2 12/15/16 07:22 98.0 74 18 105/53 99 12/12/16 05:06 Nasal Cannula 12/11/16 23:10 2.0 Intake and Output 12/14/16 12/14/16 12/15/16 15:00 23:00 07:00 Intake Total 1280 ml 1200 ml Output Total 40 ml Balance -40 ml 1280 ml 1200 ml Exam Constitutional: well developed Head: atraumatic, normocephalic Neck: supple Respiratory: diminished breath sounds Cardiovascular: regular rate and rhythm Gastrointestinal: non-tender, soft Extremities: normal pulses Results Result Diagram: 12/15/16 0506 12/15/16 0506 Results 24 hrs Laboratory Tests Test 12/14/16 13:04 12/14/16 17:50 12/14/16 21:01 12/15/16 05:06 Bedside Glucose 217 167 178 White Blood Count 4.7 #L Red Blood Count 3.45 L Hemoglobin 9.9 L Hematocrit 30.3 L Mean Corpuscular Volume 87.8 Mean Corpuscular Hemoglobin 28.7 L Mean Corpuscular Hemoglobin Concent 32.7 Red Cell Distribution Width 12.9 Platelet Count 147 Mean Platelet Volume 11.2 H Neutrophils % 34.4 L Lymphocytes % 50.9 Monocytes % 10.7 Eosinophils % 3.4 Basophils % 0.4 Nucleated Red Blood Cells % 0.0 Neutrophils # (Manual) 2 Lymphocytes # 2.4 Monocytes # 0.5 Eosinophils # 0.2 Basophils # 0.0 Nucleated Red Blood Cells # 0.0 Sodium Level 144 Potassium Level 3.9 Chloride Level 101 Carbon Dioxide Level 30 Anion Gap 17 H Blood Urea Nitrogen 16 Creatinine 0.81 Glucose Level 76 Calcium Level 9.1 Test 12/15/16 08:43 12/15/16 09:28 Bedside Glucose 66 L 92 Medications Medications Current Medications Tamsulosin HCl (Flomax) 0.4 mg HS PO Last administered on 12/14/16 20:59; Admin Dose 0.4 MG; Start 12/08/16 at 21:00 Sucralfate (Carafate) 1 gm DAILY PO Last administered on 12/15/16 09:29; Admin Dose 1 GM; Start 12/08/16 at 09:00 Diclofenac Sodium (Voltaren) 75 mg BID PO Last administered on 12/15/16 09:29 ; Admin Dose 75 MG; Start 12/07/16 at 22:00 Nicotine (Nicoderm 21 Mg/ 24hr) 1 patch DAILY TRANSDERM Last administered on 09:30; Admin Dose 1 PATCH; Start 12/08/16 at 00:00 Miscellaneous Information 1 ea NOTE XX ; Start 12/08/16 at 00:00 Glucose (Glutose) 15 gm Q15M PRN PO DECREASED GLUCOSE; Start 12/08/16 at 00:00 Glucose (Glutose) 22.5 gm Q15M PRN PO DECREASED GLUCOSE; Start 12/08/16 at 00: 00 Dextrose (D50w Syringe) 25 ml Q15M PRN IV DECREASED GLUCOSE; Start 12/08/16 at 00:00 Dextrose (D50w Syringe) 50 ml Q15M PRN IV DECREASED GLUCOSE; Start 12/08/16 at 00:00 Glucagon (Glucagen) 1 mg Q15M PRN IM DECREASED GLUCOSE; Start 12/08/16 at 00:00 Glucose (Glutose) 15 gm Q15M PRN BUCCAL DECREASED GLUCOSE; Start 12/08/16 at 00 :00 Acetaminophen (Tylenol Tab) 650 mg Q4H PRN PO PAIN AND OR ELEVATED TEMP Last administered on 12/09/16 07:37; Admin Dose 650 MG; Start 12/08/16 at 09:30 Morphine Sulfate (morphine) 2 mg Q3H PRN IV BREAKTHROUGH PAIN; Start 12/08/16 at 09:30 Hydralazine HCl (Apresoline) 10 mg Q4H PRN IV ELEVATED BLOOD PRESSURE Last administered on 12/09/16 14:10; Admin Dose 10 MG; Start 12/08/16 at 09:30 Insulin Glargine (Lantus) 10 unit DAILY@20 SC Last administered on 12/14/16 21 :04; Admin Dose 10 UNIT; Start 12/08/16 at 20:00 Lisinopril (Zestril) 10 mg DAILY PO Last administered on 12/14/16 09:06; Admin Dose 10 MG; Start 12/09/16 at 09:00 Acetaminophen/ Hydrocodone Bitart ([place] (5/325)) 1 tab Q4H PRN PO PAIN LEVEL 1 -5 Last administered on 12/15/16 09:35; Admin Dose 1 TAB; Start 12/11/16 at 18: 00 Docusate Sodium (Colace) 100 mg BID PO Last administered on 12/15/16 09:29; Admin Dose 100 MG; Start 12/11/16 at 18:00 Naloxone HCl (Narcan) 0.2 mg Q2M PRN IV RR 8 BREATHS/MIN OR LESS; Start at 18:00 Hydromorphone HCl 1 mg 1 mg Q4H PRN IV PAIN Last administered on 12/12/16 11: 51; Admin Dose 1 MG; Start 12/11/16 at 18:00 Sodium Chloride (NS) 1,000 ml @ 70 mls/hr [id number] IV Last administered on 12/13 01:27; Admin Dose 70 MLS/HR; Start 12/12/16 at 07:30 Ondansetron HCl (Zofran Inj) 4 mg Q4 PRN IV NAUSEA AND/OR VOMITING; Start 12/12 at 17:00 Diagnostic Test (Pha) (Accu-Chek) 1 ea 02 XX Last administered on 12/13/16 01: 30; Admin Dose 1 EA; Start 12/13/16 at 02:00 MILES HAWKINS Dec 15, 2016 09:56
[2016-12-15 14:00] VITALS: BP 118/58; RESP 18
[2016-12-15 20:00] VITALS: BP 126/65; RESP 20
[2016-12-15] MEDS: INSULIN GLARGINE [LANtus] 3 ML PEN SC SCH (20:00)
[2016-12-15] MEDS: TAMSULOSIN (SR) 0.4 MG CAP PO SCH (21:01)
[2016-12-16] MEDS: ACCU-CHEK XX SCH (01:56)
[2016-12-16 02:02] VITALS: BP 137/62; RESP 19
[2016-12-16 07:41] VITALS: BP 140/68; RESP 18
[2016-12-16] MEDS: LISINOPRIL 10 MG TAB PO SCH (08:47)
[2016-12-16] MEDS: NICOTINE (21 MG/24 HR) PATCH TRANSDERM SCH (08:47)
[2016-12-16] MEDS: SUCRALFATE 1 GM TAB PO SCH (08:47)
[2016-12-16] MEDS: REPAGLINIDE 2 MG TAB PO SCH ×3 (08:47→18:04)
[2016-12-16] MEDS: DOCUSATE SODIUM 100 MG CAP PO SCH ×2 (08:47→20:24)
[2016-12-16] MEDS: metFORMIN 500 MG TAB PO SCH ×2 (08:47→18:07)
[2016-12-16] MEDS: DICLOFENAC (EC) 75 MG TAB PO SCH ×2 (08:47→20:24)
[2016-12-16] MEDS: INSULIN ASPART [NOVOLOG] 3 ML PEN SC SCH ×7 (08:49→21:00)
[2016-12-16] MEDS: SOD CHLORIDE 0.9% 1,000 ML IV SCH (11:36)
--- NOTE | 2016-12-16 11:45 | PN ---
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 Castaneda. Continue pain management, physical therapy. -Poorly controlled diabetes mellitus with hemoglobin A1c 13.3, continue metformin, Prandin, Lantus and NovoLog. -Hypertension. Continue lisinopril and hydralazine. -Tobacco dependence, continue nicotine patch, tobacco cessation is strongly advised. -Homelessness, case management for sniff placement for recovery. Problems: Subjective 24 Hr Interval Summary Free Text/Dictation Patient is doing better Exam/Review of Systems Vital Signs Vitals Vital Signs Date Time Temp Pulse Resp B/P Pulse Ox O2 Delivery O2 Flow Rate FiO2 12/16/16 07:41 98.0 73 18 140/68 98 Intake and Output 12/15/16 12/15/16 12/16/16 15:00 23:00 07:00 Intake Total 1020 ml 960 ml Output Total 800 ml 800 ml Balance 220 ml 160 ml Exam Constitutional: well developed Head: atraumatic, normocephalic Neck: supple Respiratory: clear to auscultation Cardiovascular: regular rate and rhythm Gastrointestinal: non-tender, soft Extremities: normal pulses Results Result Diagram: 12/15/16 0506 12/15/16 0506 Results 24 hrs Laboratory Tests Test 12/15/16 12:52 12/15/16 17:47 12/15/16 21:02 12/16/16 08:42 Bedside Glucose 151 77 107 146 Medications Medications Current Medications Tamsulosin HCl (Flomax) 0.4 mg HS PO Last administered on 12/15/16 21:01; Admin Dose 0.4 MG; Start 12/08/16 at 21:00 Sucralfate (Carafate) 1 gm DAILY PO Last administered on 12/16/16 08:47; Admin Dose 1 GM; Start 12/08/16 at 09:00 Diclofenac Sodium (Voltaren) 75 mg BID PO Last administered on 12/16/16 08:47 ; Admin Dose 75 MG; Start 12/07/16 at 22:00 Nicotine (Nicoderm 21 Mg/ 24hr) 1 patch DAILY TRANSDERM Last administered on 08:47; Admin Dose 1 PATCH; Start 12/08/16 at 00:00 Miscellaneous Information 1 ea NOTE XX ; Start 12/08/16 at 00:00 Glucose (Glutose) 15 gm Q15M PRN PO DECREASED GLUCOSE; Start 12/08/16 at 00:00 Glucose (Glutose) 22.5 gm Q15M PRN PO DECREASED GLUCOSE; Start 12/08/16 at 00: 00 Dextrose (D50w Syringe) 25 ml Q15M PRN IV DECREASED GLUCOSE; Start 12/08/16 at 00:00 Dextrose (D50w Syringe) 50 ml Q15M PRN IV DECREASED GLUCOSE; Start 12/08/16 at 00:00 Glucagon (Glucagen) 1 mg Q15M PRN IM DECREASED GLUCOSE; Start 12/08/16 at 00:00 Glucose (Glutose) 15 gm Q15M PRN BUCCAL DECREASED GLUCOSE; Start 12/08/16 at 00 :00 Acetaminophen (Tylenol Tab) 650 mg Q4H PRN PO PAIN AND OR ELEVATED TEMP Last administered on 12/09/16 07:37; Admin Dose 650 MG; Start 12/08/16 at 09:30 Morphine Sulfate (morphine) 2 mg Q3H PRN IV BREAKTHROUGH PAIN; Start 12/08/16 at 09:30 Hydralazine HCl (Apresoline) 10 mg Q4H PRN IV ELEVATED BLOOD PRESSURE Last administered on 12/09/16 14:10; Admin Dose 10 MG; Start 12/08/16 at 09:30 Insulin Glargine (Lantus) 10 unit DAILY@20 SC Last administered on 12/14/16 21 :04; Admin Dose 10 UNIT; Start 12/08/16 at 20:00 Lisinopril (Zestril) 10 mg DAILY PO Last administered on 12/16/16 08:47; Admin Dose 10 MG; Start 12/09/16 at 09:00 Acetaminophen/ Hydrocodone Bitart ([place] (5/325)) 1 tab Q4H PRN PO PAIN LEVEL 1 -5 Last administered on 12/15/16 23:53; Admin Dose 1 TAB; Start 12/11/16 at 18: 00 Docusate Sodium (Colace) 100 mg BID PO Last administered on 12/16/16 08:47; Admin Dose 100 MG; Start 12/11/16 at 18:00 Naloxone HCl (Narcan) 0.2 mg Q2M PRN IV RR 8 BREATHS/MIN OR LESS; Start at 18:00 Hydromorphone HCl 1 mg 1 mg Q4H PRN IV PAIN Last administered on 12/12/16 11: 51; Admin Dose 1 MG; Start 12/11/16 at 18:00 Sodium Chloride (NS) 1,000 ml @ 70 mls/hr [id number] IV Last administered on 12/13 01:27; Admin Dose 70 MLS/HR; Start 12/12/16 at 07:30 Ondansetron HCl (Zofran Inj) 4 mg Q4 PRN IV NAUSEA AND/OR VOMITING; Start 12/12 at 17:00 Diagnostic Test (Pha) (Accu-Chek) 1 ea 02 XX Last administered on 12/13/16 01: 30; Admin Dose 1 EA; Start 12/13/16 at 02:00 MILES HAWKINS Dec 16, 2016 11:45
[2016-12-16 15:57] VITALS: BP 122/59; RESP 18
[2016-12-16] MEDS: HYDROCODONE/APAP (5/325) TAB PO PRN ×2 (16:13→23:27)
[2016-12-16 19:15] VITALS: BP 119/70; RESP 18
[2016-12-16] MEDS: TAMSULOSIN (SR) 0.4 MG CAP PO SCH (20:24)
[2016-12-16] MEDS: INSULIN GLARGINE [LANtus] 3 ML PEN SC SCH (20:26)
[2016-12-17] MEDS: SOD CHLORIDE 0.9% 1,000 ML IV SCH ×2 (01:54→16:12)
[2016-12-17 02:00] VITALS: BP 122/67; RESP 18
[2016-12-17] MEDS: ACCU-CHEK XX SCH (02:00)
[2016-12-17 07:55] VITALS: BP 120/68; RESP 20
[2016-12-17] MEDS: INSULIN ASPART [NOVOLOG] 3 ML PEN SC SCH ×7 (08:55→21:00)
[2016-12-17] MEDS: HYDROCODONE/APAP (5/325) TAB PO PRN ×2 (08:57→20:11)
[2016-12-17] MEDS: DICLOFENAC (EC) 75 MG TAB PO SCH ×2 (08:58→20:03)
[2016-12-17] MEDS: SUCRALFATE 1 GM TAB PO SCH (08:58)
[2016-12-17] MEDS: REPAGLINIDE 2 MG TAB PO SCH ×3 (08:58→18:12)
[2016-12-17] MEDS: DOCUSATE SODIUM 100 MG CAP PO SCH ×2 (08:58→20:04)
[2016-12-17] MEDS: metFORMIN 500 MG TAB PO SCH ×2 (08:58→18:12)
[2016-12-17] MEDS: LISINOPRIL 10 MG TAB PO SCH (08:58)
[2016-12-17] MEDS: NICOTINE (21 MG/24 HR) PATCH TRANSDERM SCH (09:10)
--- NOTE | 2016-12-17 16:28 | PN ---
Date/Time of Note Date/Time of Note DATE: 12/17/16 TIME: 16:26 Assessment/Plan VTE Prophylaxis VTE Prophylaxis Intervention: SCD's Lines/Catheters IV Catheter Type (from Nrsg): Saline Lock Urinary Cath still in place: No Assessment/Plan Chief Complaint/Hosp Course Patient remains hemodynamically stable, blood sugar is well controlled, pending fpc facility placement Assessment/Plan -L4-5 disk herniation with significant neuroforaminal narrowing with radiculopathy and weakness, status post L4-L5 transforaminal fusion by Dr. Castaneda. Continue pain management, physical therapy. -Poorly controlled diabetes mellitus with hemoglobin A1c 13.3, continue metformin, Prandin, Lantus and NovoLog. -Hypertension. Continue lisinopril and hydralazine. -Tobacco dependence, continue nicotine patch, tobacco cessation is strongly advised. -Homelessness, case management for sniff placement for recovery. Further recommendations based on clinical course. Plan of care discussed with Dr. Rubio. Problems: Exam/Review of Systems Vital Signs Vitals Vital Signs Date Time Temp Pulse Resp B/P Pulse Ox O2 Delivery O2 Flow Rate FiO2 12/17/16 07:55 97.2 72 20 120/68 96 Intake and Output 12/16/16 12/16/16 12/17/16 15:00 23:00 07:00 Intake Total 1050 ml 480 ml Output Total 850 ml Balance 1050 ml -370 ml Exam Constitutional: alert, oriented Head: normocephalic Neck: supple Respiratory: normal air movement Cardiovascular: nl pulses Gastrointestinal: non-tender, soft Musculoskeletal: other (Low back surgical incision) Neurological: nl mental status Results Result Diagram: 12/15/16 0506 12/15/16 0506 Results 24 hrs Laboratory Tests Test 12/16/16 17:56 12/16/16 20:22 12/17/16 08:39 12/17/16 12:40 Bedside Glucose 119 123 125 112 Medications Medications Current Medications Tamsulosin HCl (Flomax) 0.4 mg HS PO Last administered on 12/16/16 20:24; Admin Dose 0.4 MG; Start 12/08/16 at 21:00 Sucralfate (Carafate) 1 gm DAILY PO Last administered on 12/17/16 08:58; Admin Dose 1 GM; Start 12/08/16 at 09:00 Diclofenac Sodium (Voltaren) 75 mg BID PO Last administered on 12/17/16 08:58 ; Admin Dose 75 MG; Start 12/07/16 at 22:00 Nicotine (Nicoderm 21 Mg/ 24hr) 1 patch DAILY TRANSDERM Last administered on 09:10; Admin Dose 1 PATCH; Start 12/08/16 at 00:00 Miscellaneous Information 1 ea NOTE XX ; Start 12/08/16 at 00:00 Glucose (Glutose) 15 gm Q15M PRN PO DECREASED GLUCOSE; Start 12/08/16 at 00:00 Glucose (Glutose) 22.5 gm Q15M PRN PO DECREASED GLUCOSE; Start 12/08/16 at 00: 00 Dextrose (D50w Syringe) 25 ml Q15M PRN IV DECREASED GLUCOSE; Start 12/08/16 at 00:00 Dextrose (D50w Syringe) 50 ml Q15M PRN IV DECREASED GLUCOSE; Start 12/08/16 at 00:00 Glucagon (Glucagen) 1 mg Q15M PRN IM DECREASED GLUCOSE; Start 12/08/16 at 00:00 Glucose (Glutose) 15 gm Q15M PRN BUCCAL DECREASED GLUCOSE; Start 12/08/16 at 00 :00 Acetaminophen (Tylenol Tab) 650 mg Q4H PRN PO PAIN AND OR ELEVATED TEMP Last administered on 12/09/16 07:37; Admin Dose 650 MG; Start 12/08/16 at 09:30 Morphine Sulfate (morphine) 2 mg Q3H PRN IV BREAKTHROUGH PAIN; Start 12/08/16 at 09:30 Hydralazine HCl (Apresoline) 10 mg Q4H PRN IV ELEVATED BLOOD PRESSURE Last administered on 12/09/16 14:10; Admin Dose 10 MG; Start 12/08/16 at 09:30 Insulin Glargine (Lantus) 10 unit DAILY@20 SC Last administered on 12/16/16 20 :26; Admin Dose 10 UNIT; Start 12/08/16 at 20:00 Lisinopril (Zestril) 10 mg DAILY PO Last administered on 12/17/16 08:58; Admin Dose 10 MG; Start 12/09/16 at 09:00 Acetaminophen/ Hydrocodone Bitart ([place] (5/325)) 1 tab Q4H PRN PO PAIN LEVEL 1 -5 Last administered on 12/17/16 08:57; Admin Dose 1 TAB; Start 12/11/16 at 18: 00 Docusate Sodium (Colace) 100 mg BID PO Last administered on 12/17/16 08:58; Admin Dose 100 MG; Start 12/11/16 at 18:00 Naloxone HCl (Narcan) 0.2 mg Q2M PRN IV RR 8 BREATHS/MIN OR LESS; Start at 18:00 Hydromorphone HCl 1 mg 1 mg Q4H PRN IV PAIN Last administered on 12/12/16 11: 51; Admin Dose 1 MG; Start 12/11/16 at 18:00 Sodium Chloride (NS) 1,000 ml @ 70 mls/hr [id number] IV Last administered on 12/13 01:27; Admin Dose 70 MLS/HR; Start 12/12/16 at 07:30 Ondansetron HCl (Zofran Inj) 4 mg Q4 PRN IV NAUSEA AND/OR VOMITING; Start 12/12 at 17:00 Diagnostic Test (Pha) (Accu-Chek) 1 ea 02 XX Last administered on 12/13/16 01: 30; Admin Dose 1 EA; Start 12/13/16 at 02:00 HUAN CAICEDO Dec 17, 2016 16:27
[2016-12-17 17:36] VITALS: Ht 170.2 cm; Wt 69.6 kg
[2016-12-17 19:37] VITALS: BP 130/67; RESP 18
[2016-12-17] MEDS: TAMSULOSIN (SR) 0.4 MG CAP PO SCH (20:04)
[2016-12-17] MEDS: INSULIN GLARGINE [LANtus] 3 ML PEN SC SCH (20:11)
[2016-12-18 01:35] VITALS: BP 121/66; RESP 18
[2016-12-18] MEDS: ACCU-CHEK XX SCH (02:00)
[2016-12-18 05:09] LABS: BASOPHILS % 0.5 % (0.0-2.0); EOSINOPHILS # 0.2 10^3/ul (0.0-0.5); EOSINOPHILS % 3.6 % (0.0-7.0); HEMATOCRIT 32.1 % (42.0-52.0); HEMOGLOBIN 10.8 g/dl (14.0-18.0); LYMPHOCYTES # 2.2 10^3/ul (0.8-2.9); LYMPHOCYTES % 50.2 % (15.0-51.0); MEAN CORPUSCULAR HEMOGLOBIN 29.5 pg (29.0-33.0); MEAN CORPUSCULAR HGB CONC 33.6 g/dl (32.0-37.0); MEAN CORPUSCULAR VOLUME 87.7 fl (82.0-101.0); MEAN PLATELET VOLUME 10.2 fl (7.4-10.4); MONOCYTE # 0.4 10^3/ul (0.3-0.9); NEUTROPHILS % 35.5 % (39.0-77.0); PLATELET COUNT 189 10^3/UL (140-415); RED BLOOD COUNT 3.66 10^6/ul (4.70-6.10); RED CELL DISTRIBUTION WIDTH 12.6 % (11.5-14.5); WHITE BLOOD COUNT 4.4 10^3/ul (4.8-10.8)
[2016-12-18 05:45] LABS: CALCIUM 9.3 mg/dl (8.4-10.2); CREATININE 0.95 mg/dl (0.61-1.24); POTASSIUM 4.3 mmol/L (3.5-5.1)
[2016-12-18] MEDS: INSULIN ASPART [NOVOLOG] 3 ML PEN SC SCH ×4 (07:50→12:41)
[2016-12-18 07:53] VITALS: BP 119/59; RESP 18
[2016-12-18] MEDS: SUCRALFATE 1 GM TAB PO SCH (08:38)
[2016-12-18] MEDS: LISINOPRIL 10 MG TAB PO SCH (08:38)
[2016-12-18] MEDS: REPAGLINIDE 2 MG TAB PO SCH ×2 (08:38→12:37)
[2016-12-18] MEDS: metFORMIN 500 MG TAB PO SCH (08:38)
[2016-12-18] MEDS: DICLOFENAC (EC) 75 MG TAB PO SCH (08:38)
[2016-12-18] MEDS: DOCUSATE SODIUM 100 MG CAP PO SCH (08:38)
[2016-12-18] MEDS: NICOTINE (21 MG/24 HR) PATCH TRANSDERM SCH (08:39)
[2016-12-18] MEDS: HYDROCODONE/APAP (5/325) TAB PO PRN ×2 (10:19→15:17)
--- NOTE | 2016-12-18 17:39 | DS ---
Date/Time of Note Date/Time of Note DATE: 12/18/16 TIME: 17:38 Discharge Summary Admission/Discharge Info Admit Date/Time Dec 07, 2016 at 20:20 Discharge Date/Time Dec 18, 2016 at 16:11 Patient Condition: Stable Hx of Present Illness The patient is a 56-year-old man with a history of diabetes, hypertension, and peripheral neuropathy. The patient also has low back pain radiating to lower extremity with weakness, right more than left. The patient was originally admitted at [facility]. MRI of the LS spine revealed L4-L5 disk herniation with significant neural foraminal narrowing. The patient was seen by Dr. Castaneda and subsequently was transferred to [facility] for surgical procedure. Patient denied any chest pain. Denied any shortness of breath. No history of fever or chills. No history of abdominal pain. No history of headache, dizziness syncope. Patient complained of mild neck discomfort and also difficulty in walking, which could either be due to neuropathy but will need to rule out C-spine causes. The patient will undergo MRI of the C- spine. The patient denied any leg edema. No history of urinary or bowel retention or incontinence. The rest of the system unremarkable. Hospital Course -L4-5 disk herniation with significant neuroforaminal narrowing with radiculopathy and weakness, status post L4-L5 transforaminal fusion by Dr. Castaneda. Continue pain management, physical therapy. -Poorly controlled diabetes mellitus with hemoglobin A1c 13.3, continue metformin, Prandin, Lantus and NovoLog. -Hypertension. Continue lisinopril and hydralazine. -Tobacco dependence, continue nicotine patch, tobacco cessation is strongly advised. -Homelessness, case management for sniff placement for recovery. Home Meds Reported Medications Diclofenac Sodium* (Diclofenac Sodium*) 75 Mg Tablet., 75 MG PO BID, #60 TAB 12/07/16 Glyburide* (Glyburide*) 5 Mg Tablet, 5 MG PO DAILY, #30 TAB 12/07/16 Sucralfate* (Carafate*) 1 Gm Tab, 1 GM PO DAILY, TAB 12/07/16 Tamsulosin Hcl* (Tamsulosin Hcl*) 0.4 Mg Cap.er.24h, 0.4 MG PO HS, CAP 12/07/16 Follow-up Plan Follow-up with Dr. Briseno in 2 weeks Primary Care Provider Care Physician No Primary Time spent on discharge: > 30 minutes Pending Labs Laboratory Tests Test 12/17/16 20:06 12/18/16 04:45 12/18/16 08:36 12/18/16 12:27 Bedside Glucose 152mg/dL (70-220) 139mg/dL (70-220) 187mg/dL (70-220) White Blood Count 4.410^3/ul (4.8-10.8) Red Blood Count 3.6610^6/ul (4.70-6.10) Hemoglobin 10.8g/dl (14.0-18.0) Hematocrit 32.1% (42.0-52.0) Mean Corpuscular Volume 87.7fl (82.0-101.0) Mean Corpuscular Hemoglobin 29.5pg (29.0-33.0) Mean Corpuscular Hemoglobin Concent 33.6g/dl (32.0-37.0) Red Cell Distribution Width 12.6% (11.5-14.5) Platelet Count 21974^3/UL (140-415) Mean Platelet Volume 10.2fl (7.4-10.4) Neutrophils % 35.5% (39.0-77.0) Lymphocytes % 50.2% (15.0-51.0) Monocytes % 10.0% (0.0-11.0) Eosinophils % 3.6% (0.0-7.0) Basophils % 0.5% (0.0-2.0) Nucleated Red Blood Cells % 0.0/100WBC (0.0-0.0) Neutrophils # (Manual) 210^3/ul (1.7-7.5) Lymphocytes # 2.210^3/ul (0.8-2.9) Monocytes # 0.410^3/ul (0.3-0.9) Eosinophils # 0.210^3/ul (0.0-0.5) Basophils # 0.010^3/ul (0.0-0.1) Nucleated Red Blood Cells # 0.010^3/ul (0.0-0.0) Sodium Level 139mmol/L (135-144) Potassium Level 4.3mmol/L (3.5-5.1) Chloride Level 103mmol/L (97-110) Carbon Dioxide Level 25mmol/L (21-31) Anion Gap 15 (8-16) Blood Urea Nitrogen 24mg/dl (7-20) Creatinine 0.95mg/dl (0.61-1.24) Glucose Level 138mg/dl (70-220) Calcium Level 9.3mg/dl (8.4-10.2) HUAN CAICEDO Dec 18, 2016 17:39
== END 2016-12-18 16:11 | DRG 517 ==
LOC: MS1 20:20
PROVIDERS: ADMIT Neurological Surgery; ATTEND Neurological Surgery
PROC: 4A1134G Monitoring of Peripheral Nervous Electrical Activity, Intraoperative, Percutaneous Approach (ICD-10-PCS; 2016-12-11)
PROC: 01NB0ZZ Release Lumbar Nerve, Open Approach (ICD-10-PCS; principal; 2016-12-11 17:30)
DX: M47.23 Other spondylosis with radiculopathy, cervicothoracic region (principal); E11.65 Type 2 diabetes mellitus with hyperglycemia; I10 Essential (primary) hypertension; E11.9 Type 2 diabetes mellitus without complications; F17.200 Nicotine dependence, unspecified, uncomplicated; K29.70 Gastritis, unspecified, without bleeding; Z59.0 Homelessness; M19.90 Unspecified osteoarthritis, unspecified site
CPT/HCPCS: 70551; 71010; 72100; 72131; 72141; 80048; 80053; 80061; 81003; 82962; 83036; 85025; 85049; 85610; 85670; 85730; 86850; 86900; 86901; 87081; 87086; 88304; 93306; 97116; 97162; 97530; J0360; J0690; J1100; J1170; J1815; J2250; J2405; J2710; J2795; J3010; J7030; J7042; L0639